=== PATIENT | female | born 1945 | race Caucasian/White ===

== ENCOUNTER 2017-03-13 16:55 | Inpatient (IN) | payer MEDICARE, OTHER, SELFPAY ==
[2017-03-13] VITALS (7 sets, daily range): BP systolic 139–172; BP diastolic 63–77; PULSE 70–79; RESP 14–24; TEMP 36.6–37; O2SAT 95–100; BMI 29.7; BMI 28.9
--- NOTE | 2017-03-13 17:40 | EKG12_ITS ---
Test Reason : CP Blood Pressure : / mmHG Vent. Rate : 081 BPM Atrial Rate : 081 BPM P-R Int : 134 ms QRS Dur : 088 ms QT Int : 376 ms P-R-T Axes : 051 020 039 degrees QTc Int : 436 ms Normal sinus rhythm Normal ECG Confirmed by ROBERTA PEARCE MD ([id number]), general expeditor JESUS PRINGLE ([id number] on 03/14/2017 1:29:30 PM Referred By: Confirmed By:ROBERTA PEARCE MD
--- NOTE | 2017-03-13 17:40 | RAD_ITS ---
STUDY: X-RAY CHEST REASON FOR EXAM: Female, 71 years old. Cough TECHNIQUE: PA and lateral views of the chest. COMPARISON: Chest CT from 09/30/2014 FINDINGS: Granuloma in the right midlung is stable. There is no demonstrated pleural abnormality. Normal size heart. Normal mediastinum and lidia. Normal visualized pulmonary arteries. There is atherosclerotic tortuosity of the aortic arch and descending thoracic aorta. There are diffuse degenerative changes of the visualized thoracic spine. Normal visualized ribs, clavicles, and shoulders. There is no demonstrated abnormality of the visualized soft tissue structures of the upper abdomen. RAD/Chest PA and Lateral IMPRESSION: 1. No airspace consolidation or pleural effusion. Electronically Signed: Kwaku Rea MD at 18:57 EST , Service support ,
[2017-03-13 18:21] LABS: Mucous, Urine 0 SEEN /hpf (<or=2+)
[2017-03-13 18:23] LABS: Color, Urine Yellow (Yellow); Glucose, Dipstick Normal (Normal); Ketone-Dipstick Negative (Negative); Leukocyte Esterase-Dipstick 500 /ul (Negative); Nitrite-Dipstick Positive (Negative); Occult Blood-Urine 150 /ul (Negative); Protein-Dipstick 30 mg/dl (Negative); Urine Bilirubin Dipstick Negative (Negative); Urine Clarity Sl. Cloudy (Clear); Urine Urobilinogen Normal (Normal)
[2017-03-13] MEDS: Acetaminophen 500 MG Tablet 1000 MG PO (18:29)
[2017-03-13 18:31] LABS: Amorphous Sediment 1+ URATE; Bacteria 1+ /hpf (None Seen); Red Blood Cells-Urine 10-25 SEEN /hpf (0-5); Squamous Epithelial Cells - UA 5-10 SEEN /hpf (5-10); White Blood Cells 50-100 SEEN /hpf (0-5)
[2017-03-13] MEDS: 0.9% Normal Saline 1,000 ML 1000 ML IV (18:31)
[2017-03-13 18:48] LABS: Hematocrit 36.3 % (37-47); Hemoglobin 12.4 g/dl (12.0-15.0); Mean Corp Hgb Conc 34.2 g/gl (32-36); Mean Corpuscular Hgb 29.7 pg (27.0-32.0); Mean Corpuscular Volume 86.8 fL (81-99); Mean Platelet Vol. 8.9 fl (6.2-12.0); Platelet Count 351 K/mm3 (150-450); RBC Distribution Width CV 15.2 % (11.6-14.6); RBC Distribution Width SD 48.8 fl (35.1-43.9); Red Blood Count 4.18 M/mm3 (4.2-5.4); White Blood Count 18.3 K/mm3 (4.4-11.0)
[2017-03-13 18:49] LABS: Differential Indicated MANUAL DIFF; POSITIVE COUNT YES; POSITIVE DIFFERENTIAL NO; POSITIVE MORPHOLOGY YES
[2017-03-13 18:57] LABS: ALB/GLOB Ratio 0.5 RATIO (0.9-2.4); AST(SGOT) 19 U/L (15-37); Alanine Aminotransfer ALT/SGPT 78 U/L (12-78); Albumin, Serum 2.9 g/dL (3.4-5.0); Alkaline Phosphatase 412 U/L (45-117); Anion Gap 11 (5-15); BUN 32 mg/dL (7-18); BUN/Creat Ratio 16.2 RATIO (10-20); Chloride 102 mmol/L (98-107); Creatinine, Serum 1.98 mg/dL (0.55-1.02); EST Glomerular Filtration Rate 27 mL/min (>60); Est Glom Filt Rate - Afr Amer 32 mL/min (>60); Estimated Creatinine Clearance 28.24 ml/min; Globulin 5.3 g/dL (2.2-4.2); Glucose 112 mg/dL (70-110); Lipase 102 U/L (73-393); Potassium 3.4 mmol/L (3.5-5.1); Protein, Total 8.2 g/dL (6.4-8.2); Sodium Level 135 mmol/L (136-145)
--- NOTE | 2017-03-13 19:43 | CT_ITS ---
STUDY: CT ABDOMEN AND PELVIS WITHOUT CONTRAST REASON FOR EXAM: Female, 71 years old. Left flank pain RADIATION DOSAGE (If Supplied By Facility): CTDIvol = ( 7.89 ) mGy, DLP = ( 354.78 ) mGycm TECHNIQUE: Transaxial images were obtained from the dome of the diaphragm to the symphysis pubis without oral contrast, and without intravenous contrast. Sagittal and coronal images were reconstructed. Individualized dose optimization techniques were used for this CT. COMPARISON: None. FINDINGS: Calcified granulomas right lung base. The visualized portions of the heart are within normal limits. Normal liver. Normal gallbladder and extrahepatic biliary system. Normal spleen. Normal pancreas. Normal bilateral adrenal glands. Normal right kidney. Normal left kidney. Normal visualized stomach. Normal small intestine. There are multiple colonic diverticula consistent with diverticulosis. The appendix is visualized and appears normal. Normal abdominal aorta. Normal inferior vena cava. Normal retroperitoneum. Normal urinary bladder. Normal abdominal wall. Normal osseous structures. CT/Abdomen/Pelvis without Cont IMPRESSION: Colonic diverticulosis without definite evidence of acute inflammation. No definite urolithiasis or hydronephrosis to explain left flank pain. Electronically Signed: Franky Palmer MD at 21:34 EST , Service support ,
[2017-03-13 20:09] LABS: Basophil 1 % (0-1); Eosinophil 2 % (0-5); Lymphocyte 16 % (19-41); Metamyelocyte 2 % (0-1); Monocyte 5 % (0-10); Neutrophil-Band 4 % (0-5); Neutrophil-Segmented 70 % (47-70); Total Cells Counted 100 (MANUAL DIFF)
[2017-03-13 20:15] LABS: Absolute Lymphocyte Count 2.93 X10^3/ul (0.83-4.51); Absolute Neutrophil Count 13.5 X10^3/uL (2.0-7.7); Differential Comment SCANNED; Lymphocyte # 2.93 X10^3/ul (4.0); Neutrophil # 13.54 X10^3/uL (2.7-7.7); Platelet Estimate ADEQUATE (ADEQ)
[2017-03-13 20:16] LABS: Target Cells 1+
[2017-03-13] MEDS: Ceftriaxone 1 GM/50 ML BAG IV (21:02)
[2017-03-13] MEDS: Ondansetron 4 MG/2 ML Vial IV (21:29)
--- NOTE | 2017-03-13 21:49 | ED.VISSUMM ---
- ER Visit Summary Date of Service: 03/13/17 Chief Complaint: Multiple complaints History of Present Illness: The patient is a 71 F who presents with multiple complaints. She states that recently she has had a poor appetite she has had congestion runny nose as well as lower chest pain. She also complains of epigastric abdominal pain and bilateral flank pain. She has had muscle aches and joint aches. Her symptoms initially began with a URI-like illness muscle and joint aches about a week ago. More recently she has developed bilateral flank pain which is aching as well as epigastric abdominal and lower chest pressure. She has noted cloudy urine but denies dysuria frequency or urgency. No vomiting. No documented fevers at home. Physical Examination: Afebrile vitals are stable Moist mucous membranes Heart regular rate and rhythm Lungs are clear Abdomen soft she is tender to palpation in the epigastrium Back is nontender Test Results: EKG shows normal sinus rhythm at a rate of 81. Laboratory studies notable for white blood cell count of 18.3, creatinine 1.98 potassium 3.4. Alkaline phosphatase elevated at 412, transaminases normal. Lipase normal. UA does show 500 leukocyte esterase positive nitrates and 50-100 WBCs. Chest x-ray shows no acute process. CT the abdomen shows no acute findings to explain the patient's symptoms. Emergency Department Course and Treatment: Patient has leukocytosis bilateral flank pain and obvious UTI. I do believe this represents pyelonephritis. Although she is not febrile or vomiting she does have an acute kidney injury as well. Therefore I do feel admission warranted. She was treated with IV Rocephin. She was discussed with the hospitalist will be admitted. Treatment Plan: [] Disposition: Admit Impression: Pyelonephritis Acute kidney injury This note was generated with [employer] dictation software. It may contain incorrect words, spelling, and punctuation that were not noted in review of the chart prior to signing ED Disposition - Plan for ED Patient: Chief Complaint: Chest Other Referrals: Steve Allan MD [Primary Care Provider] -
--- NOTE | 2017-03-13 22:48 | HP.PCM_ITS ---
Problem List (1) Pyelonephritis Status: Acute (2) PEPE (acute kidney injury) Status: Acute (3) Hyponatremia Status: Acute History of Present Illness Date of Admission: 03/13/17 Chief Complaint: Pyelonephritis The patient is a 71 year old female previously healthy admitted for pyelonephritis. She was in her usual start of health until a few days ago when she developed poor appetite and had generalized malaise. Nothing appeared to make her malaise better or worse. She initially had congestion but later developed epigastric pain and left flank pain. Pain was dull aching but also occasional sharp. Pain would last for hours and worsened over the next few days. She also has increase urinary frequency but no pain with urination. She has diffuse muscle ache as well. Given that her symptoms did not improve, she went to the ED for further workup. Past Medical History Allergies No Known Allergies Allergy (Verified 03/13/17 16:57) Home Medications: Ambulatory Orders Medication Instructions Recorded Estradiol [Vivelle-Dot, Estraderm] 0.1 mg TRANSDERM. 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 Denies: Chills, Fever, Weight Change HEENT: Denies: Head Aches, Sinus Congestion, Sinus Drainage Cardiovascular: Denies: Chest Pain, Palpitations Respiratory: Denies: Cough, Shortness of breath at rest, Sputum production Gastrointestinal: Denies: Abdominal Pain, Nausea, Vomiting Genitourinary: Reports: Frequency, Hesitancy. Denies: Dysuria Musculoskeletal: Denies: Joint Pain, Joint Tenderness Skin: Denies: Rash, Wounds Neurological: Denies: Numbness, Tingling, Focal weakness Psychiatric: Denies: Anxiety, Depression, Homicidal Ideations, Suicidal Ideations Hematologic/ Lymphatic: Denies: Easy Bruising, Easy Bleeding VTE Information - Inpt Only VTE Present on Admission: No VTE Mechan Device Prophylaxis: SCD's VTE Pharm Prophylaxis ordered?: Yes Patient Problems: Active and Suspected Problems Pyelonephritis (Acute) PEPE (acute kidney injury) (Acute) Hyponatremia (Acute) - Physical Exam General: Alert, Oriented x3, Cooperative HEENT: Atraumatic, PERRLA, EOMI, Normocephalic Neck: Supple, No JVD, Negative Carotid Bruits Lungs: Clear to auscultation, Normal air movement Cardiovascular: Regular rate, No murmurs Abdomen: Bowel Sounds Present, Soft, Non Tender Extremities: No edema, Capillary Refill Less than 3 Seconds Skin: No rashes, No breakdown Musculoskeletal: No Tenderness to Palpation of Joints or Extremities Neurological: Cranial nerves II-XII grossly intact Psych/Mental Status: Normal Affect, Appropriate Vital Signs Temp Pulse Resp BP Pulse Ox 98.6 F 76 24 H 172/77 H 100 03/13/17 16:58 03/13/17 21:34 03/13/17 21:34 03/13/17 21:34 03/13/17 21:34 Oxygen Delivery Method Room Air Weight: 66.7 kg Body Mass Index (BMI) 29.7 Microbiology Past 72 Hours 03/13/17 18:12 Influenza Types A,B Direct FA (COREY) - Final Mucosa - Nose Laboratory Tests Past 24 Hrs 03/13/17 03/13/17 03/13/17 18:15 18:28 18:28 WBC 18.3 H RBC 4.18 L Hgb 12.4 Hct 36.3 L MCV 86.8 MCH 29.7 MCHC 34.2 RDW 15.2 H RDW Differential 48.8 H Plt Count 351 MPV 8.9 Neut % (Auto) Not Reportable Absolute Neuts (auto) 13.5 H Absolute Lymphs (auto) 2.93 Total Counted 100 Neutrophils % (Manual) 70 Band Neutrophils % 4 Lymphocytes % (Manual) 16 L Monocytes % (Manual) 5 Eosinophils % (Manual) 2 Basophils % (Manual) 1 Metamyelocytes % 2 H Differential Comment SCANNED Diff Path Review May foll Platelet Estimate ADEQUATE Target Cells 1+ Sodium 135 L Potassium 3.4 L Chloride 102 Carbon Dioxide 22.0 Anion Gap 11 BUN 32 H Creatinine 1.98 H Estim Creat Clear Calc 28.24 Est GFR (MDRD) Af Amer 32 L Est GFR (MDRD) Non-Af 27 L BUN/Creatinine Ratio 16.2 Glucose 112 H Calcium 9.0 Total Bilirubin 0.40 AST 19 ALT 78 Alkaline Phosphatase 412 H Troponin I < 0.02 Total Protein 8.2 Albumin 2.9 L Globulin 5.3 H Albumin/Globulin Ratio 0.5 L Lipase 102 Urine Color Yellow Urine Clarity Sl. Cloudy Urine pH 6.0 Ur Specific [place] 1.010 Urine Protein 30 H Urine Glucose (UA) Normal Urine Ketones Negative Urine Occult Blood 150 H Urine Nitrite Positive H Urine Bilirubin Negative Urine Urobilinogen Normal Ur Leukocyte Esterase 500 H Urine RBC 10-25 SEEN Urine WBC 50-100 SEEN Ur Squamous Epith Cells 5-10 SEEN Amorphous Sediment 1+ URATE Urine Bacteria 1+ Urine Mucus 0 SEEN Assessment/Plan Active and Suspected Problems Pyelonephritis (Acute) PEPE (acute kidney injury) (Acute) Hyponatremia (Acute) 71 year old female previously healthy admitted for pyelonephritis. 1) Pyelonephritis: Will start ceftriaxone. Will get cultures. Monitor. 2) PEPE: Probably secondary to infection and azotemia. Hydration. Monitor. 3) Hyponatremia: Probably secondary to hypovolemia hyponatremia. Will start IVF. Monitor. 4) Prophylaxis: SCD / heparin.
--- NOTE | 2017-03-13 22:50 | ED.RN ---
MED SURG PYELONEPHRITIS GERSON
[2017-03-14] VITALS (10 sets, daily range): BP systolic 151–161; BP diastolic 67–77; PULSE 63–79; RESP 16–18; TEMP 36.5–37.1; O2SAT 98–100
[2017-03-14] MEDS: 0.9% NaCl Peripheral Flush Adult/Peds IV ×4 (03:38→11:42)
[2017-03-14] MEDS: Heparin Injection 5,000 UNITS/ML Syringe 5000 UNITS SC ×3 (06:30→21:03)
[2017-03-14 06:41] LABS: Hematocrit 33.5 % (37-47); Mean Corp Hgb Conc 32.8 g/gl (32-36); Mean Corpuscular Hgb 28.9 pg (27.0-32.0); Mean Corpuscular Volume 87.9 fL (81-99); Mean Platelet Vol. 8.9 fl (6.2-12.0); Platelet Count 304 K/mm3 (150-450); RBC Distribution Width CV 15.4 % (11.6-14.6); RBC Distribution Width SD 49.6 fl (35.1-43.9); Red Blood Count 3.81 M/mm3 (4.2-5.4); White Blood Count 15.9 K/mm3 (4.4-11.0)
[2017-03-14 06:43] LABS: Anion Gap 11 (5-15); BUN 27 mg/dL (7-18); BUN/Creat Ratio 16.9 RATIO (10-20); Calcium,Total 7.7 mg/dL (8.5-10.1); Chloride 107 mmol/L (98-107); EST Glomerular Filtration Rate 34 mL/min (>60); Est Glom Filt Rate - Afr Amer 41 mL/min (>60); Estimated Creatinine Clearance 23.84 ml/min; Glucose 144 mg/dL (70-110); Potassium 3.5 mmol/L (3.5-5.1); Sodium Level 136 mmol/L (136-145)
[2017-03-14 06:51] LABS: Differential Indicated MANUAL DIFF; POSITIVE COUNT YES; POSITIVE DIFFERENTIAL NO; POSITIVE MORPHOLOGY YES
[2017-03-14 07:55] LABS: Eosinophil 1 % (0-5); Lymphocyte 10 % (19-41); Metamyelocyte 1 % (0-1); Monocyte 6 % (0-10); Myelocyte 1 (0-0); Neutrophil-Segmented 81 % (47-70); Platelet Estimate ADEQUATE (ADEQ); Red Cell Morphology NORM C+C NORMAL (NORM C&C); Total Cells Counted 100 (MANUAL DIFF)
[2017-03-14 07:56] LABS: Absolute Lymphocyte Count 1.59 X10^3/ul (0.83-4.51); Absolute Neutrophil Count 12.9 X10^3/uL (2.0-7.7)
[2017-03-14] MEDS: Ceftriaxone 1 GM/50 ML BAG IV (09:35)
[2017-03-14] MEDS: 0.9% Normal Saline 1,000 ML 100 ML IV ×3 (11:34→20:08)
[2017-03-14 12:50] LABS: Pathologist Review Reviewed
[2017-03-14 12:52] LABS: Pathologist Review Reviewed
--- NOTE | 2017-03-14 13:48 | CASEMGMT ---
RN KATHY Face to Face with patient for initial transition planning/care coordination assessment. RN CM introduced self and role at [facility]. Patient sitting up in bed, alert and oriented, with spouse at bedside. Patient willing to participate in assessment and is able to answer all questions appropriately. Care providers, pharmacy, and demographics verified. See link attached. Patient wishes to discharge home, denies need for home health at this time. Patient states she has no further needs or concerns at this time. CM to follow for discharge planning needs that may arise. Disposition Plan: Patient to discharge home with family support and follow-up plans in place.
--- NOTE | 2017-03-14 16:51 | PCM.PROGNOTE ---
Patient Problems: Active and Suspected Problems Pyelonephritis (Acute) PEPE (acute kidney injury) (Acute) Hyponatremia (Acute) Subjective: Patient is a 71-year-old female on no outpatient medications other than estradiol patch who presented to the emergency room at [facility] on 03/13/2017 complaining of poor appetite with generalized malaise, bilateral flank pain, epigastric pain and lower chest pressure. She stated her urine was cloudy but denied any urinary frequency, urgency or dysuria. She had no vomiting. Vital signs at presentation to the emergency room were temp 98.6, pulse rate 78, blood pressure 150/72, respiratory rate 18 and she was 97-100% saturated on room air. White blood cell count was elevated at 18.3 with 70% neutrophils and 4% bands. He had 2 metamyelocytes. Sodium was low at 135 and the potassium was low at 3.4. BUN was 32 and the creatinine was 1.98. The last creatinine we have on her is from 2014 and at that time it was 0.8. Alkaline phosphatase was elevated at 412 but the other LFTs were within normal limits. Lipase was 102. UA, collected by clean catch, showed 50-100 WBCs with 1+ bacteria and positive nitrites. There was +1 urate crystals. Chest x-ray showed a stable granuloma in the right midlung and no infiltrates. CT scan of the abdomen and pelvis showed colonic diverticulosis without definite evidence of acute inflammation. There was no hydronephrosis and no urolithiasis in the left side. The gallbladder appeared normal and so did the pancreas. Blood and urine cultures were sent. An influenza swab was negative. She was admitted to the hospital with a presumptive diagnosis of pyelonephritis and with PEPE. she denies nausea, vomiting, cough. Her biggest complaint is pain in the lower substernal area and the epigastric area. She takes 1000 mg of ibuprofen daily for many years. She denies any history of peptic ulcer disease. She does admit to having chest pain associated with a sour taste in her mouth. She quit smoking 1 week ago and she drinks caffeinated beverages. She has been afebrile since admission. She has persistent systolic hypertension. She has taken 1620 cc orally since admission. Repeat lab today shows a white blood cell count of 15.9 with 81% neutrophils and no bands recorded. There is 1 metamyelocyte and 1 myelocyte. Sodium and potassium are now normal but the serum bicarb is decreased at 18. Creatinine is down to 1.6 from 1.98 at admission. Fasting glucose today was 144. - Physical Exam General: Alert, Oriented x3, Cooperative HEENT: Atraumatic, PERRLA, EOMI, Normocephalic, - - she is very hoarse. Oral: Moist Mucosa, - - No exudate and no injection in the posterior pharynx. Neck: Supple, No JVD, No Nodes, Trachea Midline Lungs: Clear to auscultation, No rhonchi, No wheeze, No rales Cardiovascular: Regular rate, Regular Rhythm, Normal S1, Normal S2, No murmurs, No Gallop Abdomen: Bowel Sounds Present, Soft, Non-Distended, Tender - in the epigastric area with no guarding for palpation Extremities: No clubbing, No cyanosis, No edema Skin: No rashes Musculoskeletal: Arthritic Changes Neurological: Cranial nerves II-XII grossly intact, Neuro grossly intact Psych/Mental Status: Normal Affect, Appropriate Vital Signs Temp Pulse Resp BP Pulse Ox 98.2 F 70 18 151/77 H 98 03/14/17 16:01 03/14/17 16:01 03/14/17 16:01 03/14/17 16:01 03/14/17 16:01 Oxygen Delivery Method Room Air Weight: 148 lb 2.41 oz Body Mass Index (BMI) 28.9 Intake and Output for Last 24 Hours 03/12/17 03/13/17 03/14/17 23:59 23:59 23:59 Intake Total 3253 / 3253 Output Total 800 / 800 Balance 2453 / 2453 Laboratory Tests Past 24 Hrs 03/14/17 03/14/17 06:00 06:00 WBC 15.9 H RBC 3.81 L Hgb 11.0 L Hct 33.5 L MCV 87.9 MCH 28.9 MCHC 32.8 RDW 15.4 H RDW Differential 49.6 H Plt Count 304 MPV 8.9 Neut % (Auto) Not Reportable Absolute Neuts (auto) 12.9 H Absolute Lymphs (auto) 1.59 Total Counted 100 Neutrophils % (Manual) 81 H Lymphocytes % (Manual) 10 L Monocytes % (Manual) 6 Eosinophils % (Manual) 1 Metamyelocytes % 1 Myelocytes % 1 H Diff Path Review Reviewed Platelet Estimate ADEQUATE RBC Morphology NORM C+C Sodium 136 Potassium 3.5 Chloride 107 Carbon Dioxide 18.0 L Anion Gap 11 BUN 27 H Creatinine 1.60 H Estim Creat Clear Calc 23.84 Est GFR (MDRD) Af Amer 41 L Est GFR (MDRD) Non-Af 34 L BUN/Creatinine Ratio 16.9 Glucose 144 H Calcium 7.7 L Assessment/Plan Active and Suspected Problems Pyelonephritis (Acute) PEPE (acute kidney injury) (Acute) Hyponatremia (Acute) Impressions 1. myalgias and arthralgias - doubt pyelonephritis, possible viral S? 2. GERD and possible PUD due to LT NSAID use 3. elevated CREAT with no hx of kidney disease - etiology? Acute? chronic? 4. arthritis with chronic NSAID - 1,000 mg of Motrin daily 5. hoarse voice Straight cath for UA and repeat urine culture now Encourage the patient to take oral pain medication for her substernal discomfort rather than IV morphine Start Protonix 40 mg twice daily GI cocktail every 8 hours as needed substernal discomfort Repeat lab in the a.m. Add a caffeine restriction to her current diet If the repeat UA shows no significant pyuria and she remains afebrile will likely discharge tomorrow Code Visit Inpatient E&M: 18742 Subs Hosp L2
[2017-03-14] MEDS: Pantoprazole Sodium 40 MG Tablet PO (20:05)
[2017-03-14 20:57] LABS: Bacteria 0 SEEN /hpf (None Seen); Color, Urine Yellow (Yellow); Glucose, Dipstick Normal (Normal); Ketone-Dipstick Negative (Negative); Leukocyte Esterase-Dipstick 500 /ul (Negative); Mucous, Urine 0 SEEN /hpf (<or=2+); Nitrite-Dipstick Negative (Negative); Occult Blood-Urine 150 /ul (Negative); Protein-Dipstick 30 mg/dl (Negative); Red Blood Cells-Urine 0 SEEN /hpf (0-5); Squamous Epithelial Cells - UA 0 SEEN /hpf (5-10); Urine Bilirubin Dipstick Negative (Negative); Urine Clarity Clear (Clear); Urine Urobilinogen Normal (Normal)
[2017-03-14 20:59] LABS: White Blood Cells 0-5 SEEN /hpf (0-5)
[2017-03-15] VITALS (9 sets, daily range): BP systolic 145–168; BP diastolic 70–80; PULSE 63–78; RESP 16–18; TEMP 36.4–37.4; O2SAT 97–100
[2017-03-15] MEDS: Heparin Injection 5,000 UNITS/ML Syringe 5000 UNITS SC ×3 (05:00→21:57)
[2017-03-15] MEDS: 0.9% Normal Saline 1,000 ML 100 ML IV ×2 (05:31→14:56)
[2017-03-15 06:46] LABS: ALB/GLOB Ratio 0.5 RATIO (0.9-2.4); AST(SGOT) 9 U/L (15-37); Alanine Aminotransfer ALT/SGPT 40 U/L (12-78); Albumin, Serum 2.1 g/dL (3.4-5.0); Alkaline Phosphatase 252 U/L (45-117); Anion Gap 8 (5-15); BUN 19 mg/dL (7-18); BUN/Creat Ratio 12.4 RATIO (10-20); Calcium,Total 7.6 mg/dL (8.5-10.1); Chloride 111 mmol/L (98-107); Creatinine, Serum 1.53 mg/dL (0.55-1.02); EST Glomerular Filtration Rate 36 mL/min (>60); Est Glom Filt Rate - Afr Amer 43 mL/min (>60); Estimated Creatinine Clearance 24.93 ml/min; Globulin 4.1 g/dL (2.2-4.2); Glucose 152 mg/dL (70-110); Magnesium 2.3 mg/dL (1.6-2.6); Phosphorus 2.3 mg/dL (2.5-4.9); Potassium 3.6 mmol/L (3.5-5.1); Protein, Total 6.2 g/dL (6.4-8.2); Sodium Level 140 mmol/L (136-145)
[2017-03-15 06:48] LABS: Hematocrit 33.3 % (37-47); Hemoglobin 10.7 g/dl (12.0-15.0); Mean Corp Hgb Conc 32.1 g/gl (32-36); Mean Corpuscular Hgb 28.9 pg (27.0-32.0); Mean Platelet Vol. 8.8 fl (6.2-12.0); Platelet Count 252 K/mm3 (150-450); RBC Distribution Width CV 15.7 % (11.6-14.6); RBC Distribution Width SD 51.7 fl (35.1-43.9); White Blood Count 14.5 K/mm3 (4.4-11.0)
[2017-03-15 06:51] LABS: Differential Indicated MANUAL DIFF; POSITIVE COUNT YES; POSITIVE DIFFERENTIAL NO; POSITIVE MORPHOLOGY YES
[2017-03-15 07:35] LABS: Lymphocyte 8 % (19-41); Monocyte 7 % (0-10); Neutrophil-Segmented 85 % (47-70)
[2017-03-15 07:36] LABS: Platelet Estimate ADEQUATE (ADEQ); Red Cell Morphology NORM C+C NORMAL (NORM C&C)
[2017-03-15 07:37] LABS: Absolute Lymphocyte Count 1.16 X10^3/ul (0.83-4.51); Absolute Neutrophil Count 12.3 X10^3/uL (2.0-7.7)
[2017-03-15] MEDS: Pantoprazole Sodium 40 MG Tablet PO ×2 (10:06→21:57)
[2017-03-15] MEDS: Ceftriaxone 1 GM/50 ML BAG IV (10:07)
[2017-03-15 11:43] LABS: Pathologist Review Reviewed
[2017-03-15 13:28] LABS: Erythrocyte Sedimentation Rate 78 mm/hr (0-30)
--- NOTE | 2017-03-15 15:09 | PCM.PROGNOTE ---
Patient Problems: Active and Suspected Problems Pyelonephritis (Acute) PEPE (acute kidney injury) (Acute) Hyponatremia (Acute) Subjective: All events the past 24 hours have been reviewed. She is afebrile with stable vital signs. Systolic blood pressure is mildly increased Intake and output are not accurate She has not had to take narcotics since the GI cocktails and Protonix were initiated. She has no substernal chest discomfort today but continues to have pain to the right of the mid epigastric area. The pain seems to increase with eating but is relieved with a GI cocktail. She has never had endoscopy. White blood cell count remains elevated at 14.5 but the patient has no fevers. Straight cath UA showed 0-5 WBCs and was nitrite negative. She does have proteinuria. Creatinine today is still elevated at 1.3 with a GFR of 36. This is consistent with stage III renal failure....... etiology is unclear at this time. An ESR today is elevated at 78 and the CRP is elevated at 99.2. Alkaline phosphatase was elevated at 412 at admission but today is 252. The gallbladder appeared normal on the CT scan. - Physical Exam General: Alert, Oriented x3, Cooperative, No apparent distress, Well developed, Well nourished HEENT: Atraumatic Oral: Moist Mucosa Neck: Supple, No JVD, Trachea Midline Lungs: Clear to auscultation Cardiovascular: Regular rate, Regular Rhythm, Normal S1, Normal S2, No murmurs, No rub noted, No Gallop Abdomen: Bowel Sounds Present, Soft, Non-Distended, Tender - Just to the right of midline in the epigastric area Extremities: No clubbing, No cyanosis, No edema Neurological: Cranial nerves II-XII grossly intact, Neuro grossly intact Vital Signs Temp Pulse Resp BP Pulse Ox 97.7 F L 63 18 145/70 H 97 03/15/17 10:08 03/15/17 11:55 03/15/17 10:08 03/15/17 10:08 03/15/17 10:08 Oxygen Delivery Method Room Air Weight: 148 lb 2.41 oz Body Mass Index (BMI) 28.9 Intake and Output for Last 24 Hours 03/13/17 03/14/17 03/15/17 23:59 23:59 23:59 Intake Total 4852 / 4852 4527 / 4527 Output Total 1500 / 1500 Balance 3352 / 3352 4527 / 4595 Laboratory Tests Past 24 Hrs 03/14/17 03/15/17 03/15/17 18:40 06:00 06:00 WBC 14.5 H RBC 3.70 L Hgb 10.7 L Hct 33.3 L MCV 90.0 MCH 28.9 MCHC 32.1 RDW 15.7 H RDW Differential 51.7 H Plt Count 252 MPV 8.8 Immature Gran % (Auto) [employer]PERATOR Neut % (Auto) [employer]AL [employer] OPERATOR Lymph % (Auto) [employer]POSAL [employer] OPERATOR [place] % (Auto) [employer]AL [employer] OPERATOR Eos % (Auto) [employer]AL [employer] OPERATOR Baso % (Auto) [employer] OPERATOR Absolute Neuts (auto) 12.3 H Absolute Lymphs (auto) 1.16 Total Counted Not Reportable Neutrophils % (Manual) 85 H Lymphocytes % (Manual) 8 L Monocytes % (Manual) 7 Diff Path Review Reviewed Platelet Estimate ADEQUATE RBC Morphology NORM C+C ESR Sodium 140 Potassium 3.6 Chloride 111 H Carbon Dioxide 21.0 Anion Gap 8 BUN 19 H Creatinine 1.53 H Estim Creat Clear Calc 24.93 Est GFR (MDRD) Af Amer 43 L Est GFR (MDRD) Non-Af 36 L BUN/Creatinine Ratio 12.4 Glucose 152 H Calcium 7.6 L Phosphorus 2.3 L Magnesium 2.3 Total Bilirubin 0.30 AST 9 L ALT 40 Alkaline Phosphatase 252 H C-React Prot Ext Range Total Protein 6.2 L Albumin 2.1 L Globulin 4.1 Albumin/Globulin Ratio 0.5 L Urine Color Yellow Urine Clarity Clear Urine pH 6.0 Ur Specific [place] 1.010 Urine Protein 30 H Urine Glucose (UA) Normal Urine Ketones Negative Urine Occult Blood 150 H Urine Nitrite Negative Urine Bilirubin Negative Urine Urobilinogen Normal Ur Leukocyte Esterase 500 H Urine RBC 0 SEEN Urine WBC 0-5 SEEN Ur Squamous Epith Cells 0 SEEN Urine Bacteria 0 SEEN Urine Mucus 0 SEEN 03/15/17 03/15/17 06:00 06:00 WBC RBC Hgb Hct MCV MCH MCHC RDW RDW Differential Plt Count MPV Immature Gran % (Auto) Neut % (Auto) Lymph % (Auto) [place] % (Auto) Eos % (Auto) Baso % (Auto) Absolute Neuts (auto) Absolute Lymphs (auto) Total Counted Neutrophils % (Manual) Lymphocytes % (Manual) Monocytes % (Manual) Diff Path Review Platelet Estimate RBC Morphology ESR 78 H Sodium Potassium Chloride Carbon Dioxide Anion Gap BUN Creatinine Estim Creat Clear Calc Est GFR (MDRD) Af Amer Est GFR (MDRD) Non-Af BUN/Creatinine Ratio Glucose Calcium Phosphorus Magnesium Total Bilirubin AST ALT Alkaline Phosphatase C-React Prot Ext Range 99.20 H Total Protein Albumin Globulin Albumin/Globulin Ratio Urine Color Urine Clarity Urine pH Ur Specific [place] Urine Protein Urine Glucose (UA) Urine Ketones Urine Occult Blood Urine Nitrite Urine Bilirubin Urine Urobilinogen Ur Leukocyte Esterase Urine RBC Urine WBC Ur Squamous Epith Cells Urine Bacteria Urine Mucus Assessment/Plan Active and Suspected Problems Pyelonephritis (Acute) PEPE (acute kidney injury) (Acute) Hyponatremia (Acute) Impressions 1. myalgias and arthralgias - doubt pyelonephritis, possible viral S? Straight cath UA had only 0-5 WBCs and was nitrite negative. 2. GERD and possible PUD due to LT NSAID use 3. elevated CREAT with no hx of kidney disease - etiology? Acute? chronic? With the elevated ESR and CRP and the proteinuria and arthritis will need to R/O CT disease 4. arthritis with chronic NSAID - 1,000 mg of Motrin daily 5. hoarse voice 6. elevated AP - significance? AP increased at admission and although the GB looks normal on the CT will get an US since the pain increases with eating Consult Dr. Nallely Valenzuela for renal failure Urine protein and urine creatinine CHARLEE and RA Ultrasound of the gallbladder If she continues to have pain in the epigastric and right upper quadrant tomorrow will need to consider endoscopy Code Visit Inpatient E&M: 25681 Subs Hosp L2
--- NOTE | 2017-03-15 15:19 | PN_ITS ---
Patient Problems: Active and Suspected Problems Pyelonephritis (Acute) PEPE (acute kidney injury) (Acute) Hyponatremia (Acute) Subjective: All events the past 24 hours have been reviewed. She is afebrile with stable vital signs. Systolic blood pressure is mildly increased Intake and output are not accurate She has not had to take narcotics since the GI cocktails and Protonix were initiated. She has no substernal chest discomfort today but continues to have pain to the right of the mid epigastric area. The pain seems to increase with eating but is relieved with a GI cocktail. She has never had endoscopy. White blood cell count remains elevated at 14.5 but the patient has no fevers. Straight cath UA showed 0-5 WBCs and was nitrite negative. She does have proteinuria. Creatinine today is still elevated at 1.3 with a GFR of 36. This is consistent with stage III renal failure....... etiology is unclear at this time. An ESR today is elevated at 78 and the CRP is elevated at 99.2. Alkaline phosphatase was elevated at 412 at admission but today is 252. The gallbladder appeared normal on the CT scan. - Physical Exam General: Alert, Oriented x3, Cooperative, No apparent distress, Well developed, Well nourished HEENT: Atraumatic Oral: Moist Mucosa Neck: Supple, No JVD, Trachea Midline Lungs: Clear to auscultation Cardiovascular: Regular rate, Regular Rhythm, Normal S1, Normal S2, No murmurs, No rub noted, No Gallop Abdomen: Bowel Sounds Present, Soft, Non-Distended, Tender - Just to the right of midline in the epigastric area Extremities: No clubbing, No cyanosis, No edema Neurological: Cranial nerves II-XII grossly intact, Neuro grossly intact Vital Signs Temp Pulse Resp BP Pulse Ox 97.7 F L 63 18 145/70 H 97 03/15/17 10:08 03/15/17 11:55 03/15/17 10:08 03/15/17 10:08 03/15/17 10:08 Oxygen Delivery Method Room Air Weight: 148 lb 2.41 oz Body Mass Index (BMI) 28.9 Intake and Output for Last 24 Hours 03/13/17 03/14/17 03/15/17 23:59 23:59 23:59 Intake Total 4852 / 4852 4527 / 4527 Output Total 1500 / 1500 Balance 3352 / 3352 4527 / 4518 Laboratory Tests Past 24 Hrs 03/14/17 03/15/17 03/15/17 18:40 06:00 06:00 WBC 14.5 H RBC 3.70 L Hgb 10.7 L Hct 33.3 L MCV 90.0 MCH 28.9 MCHC 32.1 RDW 15.7 H RDW Differential 51.7 H Plt Count 252 MPV 8.8 Immature Gran % (Auto) FOLDER MACHINE Neut % (Auto) FOLDER MACHINE Lymph % (Auto) FOLDER MACHINE [place] % (Auto) FOLDER MACHINE Eos % (Auto) FOLDER MACHINE Baso % (Auto) FOLDER MACHINE Absolute Neuts (auto) 12.3 H Absolute Lymphs (auto) 1.16 Total Counted Not Reportable Neutrophils % (Manual) 85 H Lymphocytes % (Manual) 8 L Monocytes % (Manual) 7 Diff Path Review Reviewed Platelet Estimate ADEQUATE RBC Morphology NORM C+C ESR Sodium 140 Potassium 3.6 Chloride 111 H Carbon Dioxide 21.0 Anion Gap 8 BUN 19 H Creatinine 1.53 H Estim Creat Clear Calc 24.93 Est GFR (MDRD) Af Amer 43 L Est GFR (MDRD) Non-Af 36 L BUN/Creatinine Ratio 12.4 Glucose 152 H Calcium 7.6 L Phosphorus 2.3 L Magnesium 2.3 Total Bilirubin 0.30 AST 9 L ALT 40 Alkaline Phosphatase 252 H C-React Prot Ext Range Total Protein 6.2 L Albumin 2.1 L Globulin 4.1 Albumin/Globulin Ratio 0.5 L Urine Color Yellow Urine Clarity Clear Urine pH 6.0 Ur Specific [place] 1.010 Urine Protein 30 H Urine Glucose (UA) Normal Urine Ketones Negative Urine Occult Blood 150 H Urine Nitrite Negative Urine Bilirubin Negative Urine Urobilinogen Normal Ur Leukocyte Esterase 500 H Urine RBC 0 SEEN Urine WBC 0-5 SEEN Ur Squamous Epith Cells 0 SEEN Urine Bacteria 0 SEEN Urine Mucus 0 SEEN 03/15/17 03/15/17 06:00 06:00 WBC RBC Hgb Hct MCV MCH MCHC RDW RDW Differential Plt Count MPV Immature Gran % (Auto) Neut % (Auto) Lymph % (Auto) [place] % (Auto) Eos % (Auto) Baso % (Auto) Absolute Neuts (auto) Absolute Lymphs (auto) Total Counted Neutrophils % (Manual) Lymphocytes % (Manual) Monocytes % (Manual) Diff Path Review Platelet Estimate RBC Morphology ESR 78 H Sodium Potassium Chloride Carbon Dioxide Anion Gap BUN Creatinine Estim Creat Clear Calc Est GFR (MDRD) Af Amer Est GFR (MDRD) Non-Af BUN/Creatinine Ratio Glucose Calcium Phosphorus Magnesium Total Bilirubin AST ALT Alkaline Phosphatase C-React Prot Ext Range 99.20 H Total Protein Albumin Globulin Albumin/Globulin Ratio Urine Color Urine Clarity Urine pH Ur Specific [place] Urine Protein Urine Glucose (UA) Urine Ketones Urine Occult Blood Urine Nitrite Urine Bilirubin Urine Urobilinogen Ur Leukocyte Esterase Urine RBC Urine WBC Ur Squamous Epith Cells Urine Bacteria Urine Mucus Assessment/Plan Active and Suspected Problems Pyelonephritis (Acute) PEPE (acute kidney injury) (Acute) Hyponatremia (Acute) Impressions 1. myalgias and arthralgias - doubt pyelonephritis, possible viral S? Straight cath UA had only 0-5 WBCs and was nitrite negative. 2. GERD and possible PUD due to LT NSAID use 3. elevated CREAT with no hx of kidney disease - etiology? Acute? chronic? With the elevated ESR and CRP and the proteinuria and arthritis will need to R/ O CT disease 4. arthritis with chronic NSAID - 1,000 mg of Motrin daily 5. hoarse voice 6. elevated AP - significance? AP increased at admission and although the GB looks normal on the CT will get an US since the pain increases with eating Consult Dr. Nallely Valenzuela for renal failure Urine protein and urine creatinine CHARLEE and RA Ultrasound of the gallbladder If she continues to have pain in the epigastric and right upper quadrant tomorrow will need to consider endoscopy Code Visit Inpatient E&M: [id number] Subs Hosp L2
[2017-03-15] MEDS: amLODIPine 5 MG Tablet PO (15:42)
[2017-03-15 15:55] LABS: Rheumatoid Factor < 10.0 IU/mL (<15)
[2017-03-15 16:17] LABS: Urine Sodium 42 mmol/L (Not Establ.)
[2017-03-16] VITALS: PULSE 72
[2017-03-16 03:10] VITALS: BP 127/69; PULSE 60; RESP 18; TEMP 37.4; O2SAT 96
[2017-03-16 05:00] VITALS: PULSE 78
[2017-03-16] MEDS: Heparin Injection 5,000 UNITS/ML Syringe 5000 UNITS SC ×2 (06:24→14:31)
[2017-03-16 06:33] LABS: Albumin, Serum 2.3 g/dL (3.4-5.0); BUN 14 mg/dL (7-18); BUN/Creat Ratio 10.4 RATIO (10-20); Calcium,Total 8.1 mg/dL (8.5-10.1); Chloride 111 mmol/L (98-107); Creatinine, Serum 1.34 mg/dL (0.55-1.02); EST Glomerular Filtration Rate 42 mL/min (>60); Est Glom Filt Rate - Afr Amer 50 mL/min (>60); Estimated Creatinine Clearance 28.46 ml/min; Glucose 107 mg/dL (70-110); Phosphorus 2.5 mg/dL (2.5-4.9); Potassium 3.7 mmol/L (3.5-5.1); Sodium Level 144 mmol/L (136-145)
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
[2017-03-16 11:09] VITALS: BP 164/77; PULSE 81; RESP 18; TEMP 36.7; O2SAT 98
[2017-03-16] MEDS: Ceftriaxone 1 GM/50 ML BAG IV (11:13)
[2017-03-16] MEDS: amLODIPine 5 MG Tablet PO (11:14)
[2017-03-16] MEDS: Pantoprazole Sodium 40 MG Tablet PO (11:14)
[2017-03-16 11:57] VITALS: PULSE 77
[2017-03-16 14:07] LABS: ANTINUCLEAR ANTIBODIES DIRECT Positive (Negative); Anti-Centromere B Ab <0.2 AI (0.0-0.9); Anti-Chromatin <0.2 AI (0.0-0.9); Anti-Jo <0.2 AI (0.0-0.9); Anti-Scleroderma-70 AB <0.2 AI (0.0-0.9); RNP Ab <0.2 AI (0.0-0.9); SJOGREN'S Anti-SS-A test < 0.2 AI (0.0-0.9); SJOGREN'S Anti-SS-B test 1.9 AI (0.0-0.9); Smith Ab <0.2 AI (0.0-0.9)
[2017-03-16 14:51] VITALS: PULSE 69
--- NOTE | 2017-03-16 15:12 | US_ITS ---
STUDY: ABDOMINAL ULTRASOUND - RIGHT UPPER QUADRANT REASON FOR VISIT: Female, 71 years old. Abnormal liver function tests. Postprandial pain. TECHNIQUE: Ultrasound evaluation of the right upper quadrant was performed with real-time and static thapa-scale imaging. TECHNICAL QUALITY: Adequate. COMPARISON: None. FINDINGS: Liver: The liver measures 16.6 cm. There is normal echogenicity of the liver. The bile ducts are within normal limits. There is hepatic color flow. The direction of portal flow is hepatopetal. There is no demonstrated mass lesion. Gallbladder: Normal distended gallbladder. The gallbladder wall measures 1.6 mm. There is a negative sonographic Man's sign. There is no pericholecystic fluid. There are no gallstones. Common Bile Duct (C.B.D.): The common bile duct measures 4.4 mm. Pancreas: Normal size of the head, body and tail of the pancreas. There is normal echogenicity of the pancreas. There is no demonstrated pancreatic mass or cyst. Right Kidney: Normal size of the right kidney. The right kidney measures 11.8 cm x 5 cm x 4.4 cm. Normal renal cortex. The right cortex measures 1.3 cm. There is no demonstrated renal mass or cyst. There is no right hydronephrosis. US/Gallbladder IMPRESSION: Normal right upper quadrant ultrasound examination. Electronically Signed: Neville Schaffer MD at 10:03 EST Tel [phone], Service support ,
--- NOTE | 2017-03-16 17:32 | DCINST_ITS ---
- Discharge Diagnoses Current Active Problems: Current Active and Chronic Problems Pyelonephritis (Acute) PEPE (acute kidney injury) (Acute) Hyponatremia (Acute) You will use the following diet at home:: No restrictions Your food should be the consistency of: Regular Your liquids should be the consistency of: Regular/Thin Discharge Activity: Return to Normal Activity Call your doctor if you observe: Fever of 101 or Higher, Inability to urinate, Shortness of breath, - - diarrhea, shaking chills, burning with urination, rash , painful sores in the mouth, vaginal itching Additional Instructions: I do not think you had a urinary tract infection. After only 1 dose of an antibiotic 12 hours later there were only 0-5 white cells in the urine and the culture had no growth. The blood cultures had no growth and you were better within 24 hours. You had 3 doses of IV antibiotics in the hospital and I have given you a prescription for an antibiotic to take for 4 additional days because the White blood cell count has improved since the antibiotics......that may mean nothing. I think you have reflux and I also think you may have an ulcer. The pain in the lower sternal area and in the abdomen has completely resolved with the acid chito and I am going to keep you on this......it is called Pantoprazole. The gall bladder was normal on the ultrasound. Your BP is high and you are going to take Amlodipine. Get your BP checked in Dr. Allan's office in 10 days. Try and discontinue Motrin until you see Dr. Valenzuela in follow up and she rechecks the kidney function. You can take up to 3 GM of Tylenol daily for pain relief. Allergies/Adverse Reactions: Allergies No Known Allergies Allergy (Verified 03/13/17 16:57) Medications to take at Discharge Estradiol [Vivelle-Dot, Estraderm] 0.1 mg TRANSDERM. QWEEK 03/13/17 Amlodipine [Norvasc] 5 mg PO DAILY #30 tab 03/16/17 Pantoprazole Sodium [Protonix] 40 mg PO BID #46 tab 03/16/17 The following prescriptions were given: Amlodipine [Norvasc] 5 mg PO DAILY #30 tab Pantoprazole Sodium [Protonix] 40 mg PO BID #46 tab Primary Care Physician: Steve Allan MD [Primary Care Provider] - Please follow up with your Primary Care Physician in: 10 days Please Follow Up With: Nallely Valenzuela DO When: 2 weeks Proposed Discharge Date: 03/16/17
--- NOTE | 2017-03-16 17:34 | PCM.DC.SUM ---
Discharge Date and Diagnosis Date of Admission: 03/13/17 Date of Discharge: 03/16/17 - Primary Discharge Diagnosis Active and Suspected Problems Pyelonephritis (Acute) PEPE (acute kidney injury) (Acute) Hyponatremia (Acute) dehydration - Secondary Discharge Diagnosis suspected HTN chronic NSAID use Hospital Course and Treatment Imaging Results: 03/16/17 15:12 Gallbladder [US] Urgent Clinical Impression(s) from Imaging Studies Chest X-Ray 03/13/17 17:40 IMPRESSION: 1. No airspace consolidation or pleural effusion. Electronically Signed: Kwaku Rea MD at 18:57 EST , Service support , Abdomen/Pelvis CT 03/13/17 19:43 IMPRESSION: Colonic diverticulosis without definite evidence of acute inflammation. No definite urolithiasis or hydronephrosis to explain left flank pain. Electronically Signed: Franky Palmer MD at 21:34 EST , Service support , Gallbladder Ultrasound 03/16/17 15:12 IMPRESSION: Normal right upper quadrant ultrasound examination. Electronically Signed: Neville Schaffer MD at 10:03 EST Tel [phone], Service support , Laboratory Tests 03/13/17 03/13/17 03/13/17 18:15 18:28 18:28 WBC 18.3 H RBC 4.18 L Hgb 12.4 Hct 36.3 L MCV 86.8 MCH 29.7 MCHC 34.2 RDW 15.2 H RDW Differential 48.8 H Plt Count 351 MPV 8.9 Immature Gran % (Auto) Neut % (Auto) Not Reportable Lymph % (Auto) Douglas % (Auto) Eos % (Auto) Baso % (Auto) Absolute Neuts (auto) 13.5 H Absolute Lymphs (auto) 2.93 Total Counted 100 Neutrophils % (Manual) 70 Band Neutrophils % 4 Lymphocytes % (Manual) 16 L Monocytes % (Manual) 5 Eosinophils % (Manual) 2 Basophils % (Manual) 1 Metamyelocytes % 2 H Myelocytes % Differential Comment SCANNED Diff Path Review Reviewed Platelet Estimate ADEQUATE RBC Morphology Target Cells 1+ ESR Sodium 135 L Potassium 3.4 L Chloride 102 Carbon Dioxide 22.0 Anion Gap 11 BUN 32 H Creatinine 1.98 H Estim Creat Clear Calc 28.24 Est GFR (MDRD) Af Amer 32 L Est GFR (MDRD) Non-Af 27 L BUN/Creatinine Ratio 16.2 Glucose 112 H Calcium 9.0 Phosphorus Magnesium Total Bilirubin 0.40 AST 19 ALT 78 Alkaline Phosphatase 412 H Troponin I < 0.02 C-React Prot Ext Range Total Protein 8.2 Albumin 2.9 L Globulin 5.3 H Albumin/Globulin Ratio 0.5 L Lipase 102 Urine Color Yellow Urine Clarity Sl. Cloudy Urine pH 6.0 Ur Specific [place] 1.010 Urine Protein 30 H Urine Glucose (UA) Normal Urine Ketones Negative Urine Occult Blood 150 H Urine Nitrite Positive H Urine Bilirubin Negative Urine Urobilinogen Normal Ur Leukocyte Esterase 500 H Urine RBC 10-25 SEEN Urine WBC 50-100 SEEN Ur Squamous Epith Cells 5-10 SEEN Amorphous Sediment 1+ URATE Urine Bacteria 1+ Urine Mucus 0 SEEN U Random Total Protein Ur Random Sodium Urine Creatinine Rheumatoid Factor CHARLEE Screen ABRAHAN-1 Antibody SS-A/Ro IgG Antibody SS-B/La IgG Antibody Sm (Sánchez) Antibody UNION CARPENTER Antibody Scl-70 Scleroderma Ab Double Strand DNA Ab Centromere B Antibody 03/13/17 03/14/17 03/14/17 18:28 06:00 06:00 WBC 15.9 H RBC 3.81 L Hgb 11.0 L Hct 33.5 L MCV 87.9 MCH 28.9 MCHC 32.8 RDW 15.4 H RDW Differential 49.6 H Plt Count 304 MPV 8.9 Immature Gran % (Auto) Neut % (Auto) Not Reportable Lymph % (Auto) Douglas % (Auto) Eos % (Auto) Baso % (Auto) Absolute Neuts (auto) 12.9 H Absolute Lymphs (auto) 1.59 Total Counted 100 Neutrophils % (Manual) 81 H Band Neutrophils % Lymphocytes % (Manual) 10 L Monocytes % (Manual) 6 Eosinophils % (Manual) 1 Basophils % (Manual) Metamyelocytes % 1 Myelocytes % 1 H Differential Comment Diff Path Review Reviewed Platelet Estimate ADEQUATE RBC Morphology NORM C+C Target Cells ESR Sodium 136 Potassium 3.5 Chloride 107 Carbon Dioxide 18.0 L Anion Gap 11 BUN 27 H Creatinine 1.60 H Estim Creat Clear Calc 23.84 Est GFR (MDRD) Af Amer 41 L Est GFR (MDRD) Non-Af 34 L BUN/Creatinine Ratio 16.9 Glucose 144 H Calcium 7.7 L Phosphorus Magnesium Total Bilirubin AST ALT Alkaline Phosphatase Troponin I C-React Prot Ext Range Total Protein Albumin Globulin Albumin/Globulin Ratio Lipase Urine Color Urine Clarity Urine pH Ur Specific [place] Urine Protein Urine Glucose (UA) Urine Ketones Urine Occult Blood Urine Nitrite Urine Bilirubin Urine Urobilinogen Ur Leukocyte Esterase Urine RBC Urine WBC Ur Squamous Epith Cells Amorphous Sediment Urine Bacteria Urine Mucus U Random Total Protein Ur Random Sodium Urine Creatinine Rheumatoid Factor CHARLEE Screen Positive H ABRAHAN-1 Antibody <0.2 SS-A/Ro IgG Antibody < 0.2 SS-B/La IgG Antibody 1.9 H Sm (Sánchez) Antibody <0.2 UNION CARPENTER Antibody <0.2 Scl-70 Scleroderma Ab <0.2 Double Strand DNA Ab <1 Centromere B Antibody <0.2 03/14/17 03/15/17 03/15/17 18:40 06:00 06:00 WBC 14.5 H RBC 3.70 L Hgb 10.7 L Hct 33.3 L MCV 90.0 MCH 28.9 MCHC 32.1 RDW 15.7 H RDW Differential 51.7 H Plt Count 252 MPV 8.8 Immature Gran % (Auto) PULVERIZER Neut % (Auto) PULVERIZER Lymph % (Auto) PULVERIZER Douglas % (Auto) PULVERIZER Eos % (Auto) PULVERIZER Baso % (Auto) PULVERIZER Absolute Neuts (auto) 12.3 H Absolute Lymphs (auto) 1.16 Total Counted Not Reportable Neutrophils % (Manual) 85 H Band Neutrophils % Lymphocytes % (Manual) 8 L Monocytes % (Manual) 7 Eosinophils % (Manual) Basophils % (Manual) Metamyelocytes % Myelocytes % Differential Comment Diff Path Review Reviewed Platelet Estimate ADEQUATE RBC Morphology NORM C+C Target Cells ESR Sodium 140 Potassium 3.6 Chloride 111 H Carbon Dioxide 21.0 Anion Gap 8 BUN 19 H Creatinine 1.53 H Estim Creat Clear Calc 24.93 Est GFR (MDRD) Af Amer 43 L Est GFR (MDRD) Non-Af 36 L BUN/Creatinine Ratio 12.4 Glucose 152 H Calcium 7.6 L Phosphorus 2.3 L Magnesium 2.3 Total Bilirubin 0.30 AST 9 L ALT 40 Alkaline Phosphatase 252 H Troponin I C-React Prot Ext Range Total Protein 6.2 L Albumin 2.1 L Globulin 4.1 Albumin/Globulin Ratio 0.5 L Lipase Urine Color Yellow Urine Clarity Clear Urine pH 6.0 Ur Specific Scotia 1.010 Urine Protein 30 H Urine Glucose (UA) Normal Urine Ketones Negative Urine Occult Blood 150 H Urine Nitrite Negative Urine Bilirubin Negative Urine Urobilinogen Normal Ur Leukocyte Esterase 500 H Urine RBC 0 SEEN Urine WBC 0-5 SEEN Ur Squamous Epith Cells 0 SEEN Amorphous Sediment Urine Bacteria 0 SEEN Urine Mucus 0 SEEN U Random Total Protein Ur Random Sodium Urine Creatinine Rheumatoid Factor CHARLEE Screen ABRAHAN-1 Antibody SS-A/Ro IgG Antibody SS-B/La IgG Antibody Sm (Sánchez) Antibody UNION CARPENTER Antibody Scl-70 Scleroderma Ab Double Strand DNA Ab Centromere B Antibody 03/15/17 03/15/17 03/15/17 06:00 06:00 06:00 WBC RBC Hgb Hct MCV MCH MCHC RDW RDW Differential Plt Count MPV Immature Gran % (Auto) Neut % (Auto) Lymph % (Auto) Douglas % (Auto) Eos % (Auto) Baso % (Auto) Absolute Neuts (auto) Absolute Lymphs (auto) Total Counted Neutrophils % (Manual) Band Neutrophils % Lymphocytes % (Manual) Monocytes % (Manual) Eosinophils % (Manual) Basophils % (Manual) Metamyelocytes % Myelocytes % Differential Comment Diff Path Review Platelet Estimate RBC Morphology Target Cells ESR 78 H Sodium Potassium Chloride Carbon Dioxide Anion Gap BUN Creatinine Estim Creat Clear Calc Est GFR (MDRD) Af Amer Est GFR (MDRD) Non-Af BUN/Creatinine Ratio Glucose Calcium Phosphorus Magnesium Total Bilirubin AST ALT Alkaline Phosphatase Troponin I C-React Prot Ext Range 99.20 H Total Protein Albumin Globulin Albumin/Globulin Ratio Lipase Urine Color Urine Clarity Urine pH Ur Specific [place] Urine Protein Urine Glucose (UA) Urine Ketones Urine Occult Blood Urine Nitrite Urine Bilirubin Urine Urobilinogen Ur Leukocyte Esterase Urine RBC Urine WBC Ur Squamous Epith Cells Amorphous Sediment Urine Bacteria Urine Mucus U Random Total Protein Ur Random Sodium Urine Creatinine Rheumatoid Factor < 10.0 CHARLEE Screen ABRAHAN-1 Antibody SS-A/Ro IgG Antibody SS-B/La IgG Antibody Sm (Sánchez) Antibody UNION CARPENTER Antibody Scl-70 Scleroderma Ab Double Strand DNA Ab Centromere B Antibody 03/15/17 03/15/17 03/15/17 15:50 15:50 15:50 WBC RBC Hgb Hct MCV MCH MCHC RDW RDW Differential Plt Count MPV Immature Gran % (Auto) Neut % (Auto) Lymph % (Auto) Douglas % (Auto) Eos % (Auto) Baso % (Auto) Absolute Neuts (auto) Absolute Lymphs (auto) Total Counted Neutrophils % (Manual) Band Neutrophils % Lymphocytes % (Manual) Monocytes % (Manual) Eosinophils % (Manual) Basophils % (Manual) Metamyelocytes % Myelocytes % Differential Comment Diff Path Review Platelet Estimate RBC Morphology Target Cells ESR Sodium Potassium Chloride Carbon Dioxide Anion Gap BUN Creatinine Estim Creat Clear Calc Est GFR (MDRD) Af Amer Est GFR (MDRD) Non-Af BUN/Creatinine Ratio Glucose Calcium Phosphorus Magnesium Total Bilirubin AST ALT Alkaline Phosphatase Troponin I C-React Prot Ext Range Total Protein Albumin Globulin Albumin/Globulin Ratio Lipase Urine Color Urine Clarity Urine pH Ur Specific [place] Urine Protein Urine Glucose (UA) Urine Ketones Urine Occult Blood Urine Nitrite Urine Bilirubin Urine Urobilinogen Ur Leukocyte Esterase Urine RBC Urine WBC Ur Squamous Epith Cells Amorphous Sediment Urine Bacteria Urine Mucus U Random Total Protein 11.0 Ur Random Sodium 42 Urine Creatinine 13.80 Rheumatoid Factor CHARLEE Screen ABRAHAN-1 Antibody SS-A/Ro IgG Antibody SS-B/La IgG Antibody Sm (Sánchez) Antibody UNION CARPENTER Antibody Scl-70 Scleroderma Ab Double Strand DNA Ab Centromere B Antibody 03/16/17 05:40 WBC RBC Hgb Hct MCV MCH MCHC RDW RDW Differential Plt Count MPV Immature Gran % (Auto) Neut % (Auto) Lymph % (Auto) Douglas % (Auto) Eos % (Auto) Baso % (Auto) Absolute Neuts (auto) Absolute Lymphs (auto) Total Counted Neutrophils % (Manual) Band Neutrophils % Lymphocytes % (Manual) Monocytes % (Manual) Eosinophils % (Manual) Basophils % (Manual) Metamyelocytes % Myelocytes % Differential Comment Diff Path Review Platelet Estimate RBC Morphology Target Cells ESR Sodium 144 Potassium 3.7 Chloride 111 H Carbon Dioxide 24.0 Anion Gap BUN 14 Creatinine 1.34 H Estim Creat Clear Calc 28.46 Est GFR (MDRD) Af Amer 50 L Est GFR (MDRD) Non-Af 42 L BUN/Creatinine Ratio 10.4 Glucose 107 Calcium 8.1 L Phosphorus 2.5 Magnesium Total Bilirubin AST ALT Alkaline Phosphatase Troponin I C-React Prot Ext Range Total Protein Albumin 2.3 L Globulin Albumin/Globulin Ratio Lipase Urine Color Urine Clarity Urine pH Ur Specific [place] Urine Protein Urine Glucose (UA) Urine Ketones Urine Occult Blood Urine Nitrite Urine Bilirubin Urine Urobilinogen Ur Leukocyte Esterase Urine RBC Urine WBC Ur Squamous Epith Cells Amorphous Sediment Urine Bacteria Urine Mucus U Random Total Protein Ur Random Sodium Urine Creatinine Rheumatoid Factor CHARLEE Screen ABRAHAN-1 Antibody SS-A/Ro IgG Antibody SS-B/La IgG Antibody Sm (Sánchez) Antibody UNION CARPENTER Antibody Scl-70 Scleroderma Ab Double Strand DNA Ab Centromere B Antibody Microbiology 03/13/17 23:45 Blood Culture (Wb) - Anticubital Right Blood Culture - Final No growth in 5 days. 03/13/17 23:36 Blood Culture (Wb) - Right Hand Blood Culture - Final No growth in 5 days. 03/14/17 18:40 Urine Catheter - Catheter Urine Culture - Final Culture exhibits no growth. 03/13/17 18:12 Mucosa - Nose Influenza Types A,B Direct FA (COREY) [facility] Procedures: None Summary of Care Provided: Patient is a 71-year-old female on no outpatient medications other than estradiol patch who presented to the emergency room at [facility] on 03/13/2017 complaining of poor appetite with generalized malaise, bilateral flank pain, epigastric pain and lower chest pressure. She stated her urine was cloudy but denied any urinary frequency, urgency or dysuria. She had no vomiting. Vital signs at presentation to the emergency room were temp 98.6, pulse rate 78, blood pressure 150/72, respiratory rate 18 and she was 97-100% saturated on room air. White blood cell count was elevated at 18.3 with 70% neutrophils and 4% bands. He had 2 metamyelocytes. Sodium was low at 135 and the potassium was low at 3.4. BUN was 32 and the creatinine was 1.98. The last creatinine we have on her is from 2014 and at that time it was 0.8. Alkaline phosphatase was elevated at 412 but the other LFTs were within normal limits. Lipase was 102. UA, collected by clean catch, showed 50-100 WBCs with 1+ bacteria and positive nitrites. There was +1 urate crystals. Chest x-ray showed a stable granuloma in the right midlung and no infiltrates. CT scan of the abdomen and pelvis showed colonic diverticulosis without definite evidence of acute inflammation. There was no hydronephrosis and no urolithiasis in the left side. The gallbladder appeared normal and so did the pancreas. Blood and urine cultures were sent. An influenza swab was negative. She was admitted to the hospital with a presumptive diagnosis of pyelonephritis and with PEPE. She had a straight cath that showed 0-5 WBCs and no nitrites done. Was done less than 24 hours after admission and she had had 1 dose of antibiotics. Culture on the specimen was negative. White blood cell count at admission was 18.3 and 03/15 had dropped to 14.5 with Rocephin 1 g IV daily. She was asymptomatic. Creatinine improved with hydration and decreased from 1.98 at admission to 1.34 at discharge. ESR was increased at 78 and the CRP was increased at 99.2. Rheumatoid factor was negative but an CHARLEE was positive. [id number] DNA was negative. SSB was increased at 1.9. Myalgias and arthralgias resolved during her hospital stay. She had a persistent epigastric/right upper quadrant pain and was treated with a PPI. She also had symptoms of chronic reflux. She was started on a PPI and as needed GI cocktails and at the time of discharge she had no symptoms. Gallbladder ultrasound was done and she had no stones and no evidence of any inflammation of the gallbladder wall. Was discharged on 03/06/2017 in good condition. Lungs were clear to auscultation and the heart had a regular rate and rhythm without gallop. The abdomen was soft, nontender, nondistended with no masses and no guarding with palpation. No peripheral edema. She is going to follow-up with Dr. Nallely Valenzuela in 2 weeks to follow her kidney function and follow-up on the positive CHARLEE with elevated ESR and CRP. She was given a prescription for amlodipine for blood pressure control and pantoprazole. 1 tablet twice daily for the next 2 weeks and then decrease to 1 daily. She is going to follow-up with her primary care physician, Dr. Ke Allan, in 10 days. Urine culture had no growth and she was asymptomatic so antibiotics were not continued at discharge. She did receive 3 days of Rocephin during her hospital stay. This note was generated with [employer] software. It may contain incorrect words, spelling, and punctuation that were not noted in checking the note before signing. Discharge Activity: Return to Normal Activity Call your doctor if you observe: Fever of 101 or Higher, Inability to urinate, Shortness of breath, - - diarrhea, shaking chills, burning with urination, rash, painful sores in the mouth, vaginal itching Home Medications: Medications to take at Discharge Estradiol [Vivelle-Dot, Estraderm] 0.1 mg TRANSDERM. QWEEK 03/13/17 Amlodipine [Norvasc] 5 mg PO DAILY #30 tab 03/16/17 Levofloxacin [Levaquin] 250 mg PO DAILY #4 tab 03/16/17 Pantoprazole Sodium [Protonix] 40 mg PO BID #46 tab 03/16/17 Following Prescrptions Were Given to Patient: Amlodipine [Norvasc] 5 mg PO DAILY #30 tab Levofloxacin [Levaquin] 250 mg PO DAILY #4 tab Pantoprazole Sodium [Protonix] 40 mg PO BID #46 tab Primary Care Physician: Steve Allan MD [Primary Care Provider] - Please follow up with your Primary Care Physician in: 10 days Please Follow Up With: Nallely Valenzuela DO When: 2 weeks Disposition: Home Minutes spent on discharge:: 35 Meaningful Use Info Meaningful Use Diagnoses (Choose all that apply): None applicable Code Visit Inpatient E&M: 08231 Disch Hosp
--- NOTE | 2017-03-16 17:48 | DS.PCM_ITS ---
Discharge Date and Diagnosis Date of Admission: 03/13/17 Date of Discharge: 03/16/17 - Primary Discharge Diagnosis Active and Suspected Problems Pyelonephritis (Acute) PEPE (acute kidney injury) (Acute) Hyponatremia (Acute) dehydration - Secondary Discharge Diagnosis suspected HTN chronic NSAID use Hospital Course and Treatment Imaging Results: 03/16/17 15:12 Gallbladder [US] Urgent Clinical Impression(s) from Imaging Studies Chest X-Ray 03/13/17 17:40 IMPRESSION: 1. No airspace consolidation or pleural effusion. Electronically Signed: Kwaku Rea MD at 18:57 EST , Service support , Abdomen/Pelvis CT 03/13/17 19:43 IMPRESSION: Colonic diverticulosis without definite evidence of acute inflammation. No definite urolithiasis or hydronephrosis to explain left flank pain. Electronically Signed: Franky Palmer MD at 21:34 EST , Service support , Gallbladder Ultrasound 03/16/17 15:12 IMPRESSION: Normal right upper quadrant ultrasound examination. Electronically Signed: Nveille Schaffer MD at 10:03 EST Tel [phone], Service support , Laboratory Tests 03/13/17 03/13/17 03/13/17 18:15 18:28 18:28 WBC 18.3 H RBC 4.18 L Hgb 12.4 Hct 36.3 L MCV 86.8 MCH 29.7 MCHC 34.2 RDW 15.2 H RDW Differential 48.8 H Plt Count 351 MPV 8.9 Immature Gran % (Auto) Neut % (Auto) Not Reportable Lymph % (Auto) [place] % (Auto) Eos % (Auto) Baso % (Auto) Absolute Neuts (auto) 13.5 H Absolute Lymphs (auto) 2.93 Total Counted 100 Neutrophils % (Manual) 70 Band Neutrophils % 4 Lymphocytes % (Manual) 16 L Monocytes % (Manual) 5 Eosinophils % (Manual) 2 Basophils % (Manual) 1 Metamyelocytes % 2 H Myelocytes % Differential Comment SCANNED Diff Path Review Reviewed Platelet Estimate ADEQUATE RBC Morphology Target Cells 1+ ESR Sodium 135 L Potassium 3.4 L Chloride 102 Carbon Dioxide 22.0 Anion Gap 11 BUN 32 H Creatinine 1.98 H Estim Creat Clear Calc 28.24 Est GFR (MDRD) Af Amer 32 L Est GFR (MDRD) Non-Af 27 L BUN/Creatinine Ratio 16.2 Glucose 112 H Calcium 9.0 Phosphorus Magnesium Total Bilirubin 0.40 AST 19 ALT 78 Alkaline Phosphatase 412 H Troponin I < 0.02 C-React Prot Ext Range Total Protein 8.2 Albumin 2.9 L Globulin 5.3 H Albumin/Globulin Ratio 0.5 L Lipase 102 Urine Color Yellow Urine Clarity Sl. Cloudy Urine pH 6.0 Ur Specific [place] 1.010 Urine Protein 30 H Urine Glucose (UA) Normal Urine Ketones Negative Urine Occult Blood 150 H Urine Nitrite Positive H Urine Bilirubin Negative Urine Urobilinogen Normal Ur Leukocyte Esterase 500 H Urine RBC 10-25 SEEN Urine WBC 50-100 SEEN Ur Squamous Epith Cells 5-10 SEEN Amorphous Sediment 1+ URATE Urine Bacteria 1+ Urine Mucus 0 SEEN U Random Total Protein Ur Random Sodium Urine Creatinine Rheumatoid Factor CHARLEE Screen ABRAHAN-1 Antibody SS-A/Ro IgG Antibody SS-B/La IgG Antibody Sm (Sánchez) Antibody CHORUS DANCER Antibody Scl-70 Scleroderma Ab Double Strand DNA Ab Centromere B Antibody 03/13/17 03/14/17 03/14/17 18:28 06:00 06:00 WBC 15.9 H RBC 3.81 L Hgb 11.0 L Hct 33.5 L MCV 87.9 MCH 28.9 MCHC 32.8 RDW 15.4 H RDW Differential 49.6 H Plt Count 304 MPV 8.9 Immature Gran % (Auto) Neut % (Auto) Not Reportable Lymph % (Auto) [place] % (Auto) Eos % (Auto) Baso % (Auto) Absolute Neuts (auto) 12.9 H Absolute Lymphs (auto) 1.59 Total Counted 100 Neutrophils % (Manual) 81 H Band Neutrophils % Lymphocytes % (Manual) 10 L Monocytes % (Manual) 6 Eosinophils % (Manual) 1 Basophils % (Manual) Metamyelocytes % 1 Myelocytes % 1 H Differential Comment Diff Path Review Reviewed Platelet Estimate ADEQUATE RBC Morphology NORM C+C Target Cells ESR Sodium 136 Potassium 3.5 Chloride 107 Carbon Dioxide 18.0 L Anion Gap 11 BUN 27 H Creatinine 1.60 H Estim Creat Clear Calc 23.84 Est GFR (MDRD) Af Amer 41 L Est GFR (MDRD) Non-Af 34 L BUN/Creatinine Ratio 16.9 Glucose 144 H Calcium 7.7 L Phosphorus Magnesium Total Bilirubin AST ALT Alkaline Phosphatase Troponin I C-React Prot Ext Range Total Protein Albumin Globulin Albumin/Globulin Ratio Lipase Urine Color Urine Clarity Urine pH Ur Specific [place] Urine Protein Urine Glucose (UA) Urine Ketones Urine Occult Blood Urine Nitrite Urine Bilirubin Urine Urobilinogen Ur Leukocyte Esterase Urine RBC Urine WBC Ur Squamous Epith Cells Amorphous Sediment Urine Bacteria Urine Mucus U Random Total Protein Ur Random Sodium Urine Creatinine Rheumatoid Factor CHARLEE Screen Positive H ABRAHAN-1 Antibody <0.2 SS-A/Ro IgG Antibody < 0.2 SS-B/La IgG Antibody 1.9 H Sm (Sánchez) Antibody <0.2 CHORUS DANCER Antibody <0.2 Scl-70 Scleroderma Ab <0.2 Double Strand DNA Ab <1 Centromere B Antibody <0.2 03/14/17 03/15/17 03/15/17 18:40 06:00 06:00 WBC 14.5 H RBC 3.70 L Hgb 10.7 L Hct 33.3 L MCV 90.0 MCH 28.9 MCHC 32.1 RDW 15.7 H RDW Differential 51.7 H Plt Count 252 MPV 8.8 Immature Gran % (Auto) [employer] SECRETARY [employer]PER Neut % (Auto) [employer] SECR[employer]ARY AND HAND[employer]PER Lymph % (Auto) [employer] SECRETARY AND HANDICAPPER [place] % (Auto) [employer] SECRETARY AND HANDIC[employer]PER Eos % (Auto) [employer] SECRETARY AND HANDICAPPER Baso % (Auto) [employer]ING SECRETARY AND HANDICAPPER Absolute Neuts (auto) 12.3 H Absolute Lymphs (auto) 1.16 Total Counted Not Reportable Neutrophils % (Manual) 85 H Band Neutrophils % Lymphocytes % (Manual) 8 L Monocytes % (Manual) 7 Eosinophils % (Manual) Basophils % (Manual) Metamyelocytes % Myelocytes % Differential Comment Diff Path Review Reviewed Platelet Estimate ADEQUATE RBC Morphology NORM C+C Target Cells ESR Sodium 140 Potassium 3.6 Chloride 111 H Carbon Dioxide 21.0 Anion Gap 8 BUN 19 H Creatinine 1.53 H Estim Creat Clear Calc 24.93 Est GFR (MDRD) Af Amer 43 L Est GFR (MDRD) Non-Af 36 L BUN/Creatinine Ratio 12.4 Glucose 152 H Calcium 7.6 L Phosphorus 2.3 L Magnesium 2.3 Total Bilirubin 0.30 AST 9 L ALT 40 Alkaline Phosphatase 252 H Troponin I C-React Prot Ext Range Total Protein 6.2 L Albumin 2.1 L Globulin 4.1 Albumin/Globulin Ratio 0.5 L Lipase Urine Color Yellow Urine Clarity Clear Urine pH 6.0 Ur Specific [place] 1.010 Urine Protein 30 H Urine Glucose (UA) Normal Urine Ketones Negative Urine Occult Blood 150 H Urine Nitrite Negative Urine Bilirubin Negative Urine Urobilinogen Normal Ur Leukocyte Esterase 500 H Urine RBC 0 SEEN Urine WBC 0-5 SEEN Ur Squamous Epith Cells 0 SEEN Amorphous Sediment Urine Bacteria 0 SEEN Urine Mucus 0 SEEN U Random Total Protein Ur Random Sodium Urine Creatinine Rheumatoid Factor CHARLEE Screen ABRAHAN-1 Antibody SS-A/Ro IgG Antibody SS-B/La IgG Antibody Sm (Sánchez) Antibody CHORUS DANCER Antibody Scl-70 Scleroderma Ab Double Strand DNA Ab Centromere B Antibody 03/15/17 03/15/17 03/15/17 06:00 06:00 06:00 WBC RBC Hgb Hct MCV MCH MCHC RDW RDW Differential Plt Count MPV Immature Gran % (Auto) Neut % (Auto) Lymph % (Auto) [place] % (Auto) Eos % (Auto) Baso % (Auto) Absolute Neuts (auto) Absolute Lymphs (auto) Total Counted Neutrophils % (Manual) Band Neutrophils % Lymphocytes % (Manual) Monocytes % (Manual) Eosinophils % (Manual) Basophils % (Manual) Metamyelocytes % Myelocytes % Differential Comment Diff Path Review Platelet Estimate RBC Morphology Target Cells ESR 78 H Sodium Potassium Chloride Carbon Dioxide Anion Gap BUN Creatinine Estim Creat Clear Calc Est GFR (MDRD) Af Amer Est GFR (MDRD) Non-Af BUN/Creatinine Ratio Glucose Calcium Phosphorus Magnesium Total Bilirubin AST ALT Alkaline Phosphatase Troponin I C-React Prot Ext Range 99.20 H Total Protein Albumin Globulin Albumin/Globulin Ratio Lipase Urine Color Urine Clarity Urine pH Ur Specific [place] Urine Protein Urine Glucose (UA) Urine Ketones Urine Occult Blood Urine Nitrite Urine Bilirubin Urine Urobilinogen Ur Leukocyte Esterase Urine RBC Urine WBC Ur Squamous Epith Cells Amorphous Sediment Urine Bacteria Urine Mucus U Random Total Protein Ur Random Sodium Urine Creatinine Rheumatoid Factor < 10.0 CHARLEE Screen ABRAHAN-1 Antibody SS-A/Ro IgG Antibody SS-B/La IgG Antibody Sm (Sánchez) Antibody CHORUS DANCER Antibody Scl-70 Scleroderma Ab Double Strand DNA Ab Centromere B Antibody 03/15/17 03/15/17 03/15/17 15:50 15:50 15:50 WBC RBC Hgb Hct MCV MCH MCHC RDW RDW Differential Plt Count MPV Immature Gran % (Auto) Neut % (Auto) Lymph % (Auto) [place] % (Auto) Eos % (Auto) Baso % (Auto) Absolute Neuts (auto) Absolute Lymphs (auto) Total Counted Neutrophils % (Manual) Band Neutrophils % Lymphocytes % (Manual) Monocytes % (Manual) Eosinophils % (Manual) Basophils % (Manual) Metamyelocytes % Myelocytes % Differential Comment Diff Path Review Platelet Estimate RBC Morphology Target Cells ESR Sodium Potassium Chloride Carbon Dioxide Anion Gap BUN Creatinine Estim Creat Clear Calc Est GFR (MDRD) Af Amer Est GFR (MDRD) Non-Af BUN/Creatinine Ratio Glucose Calcium Phosphorus Magnesium Total Bilirubin AST ALT Alkaline Phosphatase Troponin I C-React Prot Ext Range Total Protein Albumin Globulin Albumin/Globulin Ratio Lipase Urine Color Urine Clarity Urine pH Ur Specific [place] Urine Protein Urine Glucose (UA) Urine Ketones Urine Occult Blood Urine Nitrite Urine Bilirubin Urine Urobilinogen Ur Leukocyte Esterase Urine RBC Urine WBC Ur Squamous Epith Cells Amorphous Sediment Urine Bacteria Urine Mucus U Random Total Protein 11.0 Ur Random Sodium 42 Urine Creatinine 13.80 Rheumatoid Factor CHARLEE Screen ABRAHAN-1 Antibody SS-A/Ro IgG Antibody SS-B/La IgG Antibody Sm (Sánchez) Antibody CHORUS DANCER Antibody Scl-70 Scleroderma Ab Double Strand DNA Ab Centromere B Antibody 03/16/17 05:40 WBC RBC Hgb Hct MCV MCH MCHC RDW RDW Differential Plt Count MPV Immature Gran % (Auto) Neut % (Auto) Lymph % (Auto) [place] % (Auto) Eos % (Auto) Baso % (Auto) Absolute Neuts (auto) Absolute Lymphs (auto) Total Counted Neutrophils % (Manual) Band Neutrophils % Lymphocytes % (Manual) Monocytes % (Manual) Eosinophils % (Manual) Basophils % (Manual) Metamyelocytes % Myelocytes % Differential Comment Diff Path Review Platelet Estimate RBC Morphology Target Cells ESR Sodium 144 Potassium 3.7 Chloride 111 H Carbon Dioxide 24.0 Anion Gap BUN 14 Creatinine 1.34 H Estim Creat Clear Calc 28.46 Est GFR (MDRD) Af Amer 50 L Est GFR (MDRD) Non-Af 42 L BUN/Creatinine Ratio 10.4 Glucose 107 Calcium 8.1 L Phosphorus 2.5 Magnesium Total Bilirubin AST ALT Alkaline Phosphatase Troponin I C-React Prot Ext Range Total Protein Albumin 2.3 L Globulin Albumin/Globulin Ratio Lipase Urine Color Urine Clarity Urine pH Ur Specific [place] Urine Protein Urine Glucose (UA) Urine Ketones Urine Occult Blood Urine Nitrite Urine Bilirubin Urine Urobilinogen Ur Leukocyte Esterase Urine RBC Urine WBC Ur Squamous Epith Cells Amorphous Sediment Urine Bacteria Urine Mucus U Random Total Protein Ur Random Sodium Urine Creatinine Rheumatoid Factor CHARLEE Screen ABRAHAN-1 Antibody SS-A/Ro IgG Antibody SS-B/La IgG Antibody Sm (Sánchez) Antibody CHORUS DANCER Antibody Scl-70 Scleroderma Ab Double Strand DNA Ab Centromere B Antibody Microbiology 03/13/17 23:45 Blood Culture (Wb) - Anticubital Right Blood Culture - Final No growth in 5 days. 03/13/17 23:36 Blood Culture (Wb) - Right Hand Blood Culture - Final No growth in 5 days. 03/14/17 18:40 Urine Catheter - Catheter Urine Culture - Final Culture exhibits no growth. 03/13/17 18:12 Mucosa - Nose Influenza Types A,B Direct FA (COREY) - [facility] None Procedures: None Summary of Care Provided: Patient is a 71-year-old female on no outpatient medications other than estradiol patch who presented to the emergency room at [facility] on 03/13/2017 complaining of poor appetite with generalized malaise, bilateral flank pain, epigastric pain and lower chest pressure. She stated her urine was cloudy but denied any urinary frequency, urgency or dysuria. She had no vomiting. Vital signs at presentation to the emergency room were temp 98.6, pulse rate 78, blood pressure 150/72, respiratory rate 18 and she was 97-100% saturated on room air. White blood cell count was elevated at 18.3 with 70% neutrophils and 4% bands. He had 2 metamyelocytes. Sodium was low at 135 and the potassium was low at 3.4. BUN was 32 and the creatinine was 1.98. The last creatinine we have on her is from 2014 and at that time it was 0.8. Alkaline phosphatase was elevated at 412 but the other LFTs were within normal limits. Lipase was 102. UA, collected by clean catch, showed 50-100 WBCs with 1+ bacteria and positive nitrites. There was +1 urate crystals. Chest x- ray showed a stable granuloma in the right midlung and no infiltrates. CT scan of the abdomen and pelvis showed colonic diverticulosis without definite evidence of acute inflammation. There was no hydronephrosis and no urolithiasis in the left side. The gallbladder appeared normal and so did the pancreas. Blood and urine cultures were sent. An influenza swab was negative. She was admitted to the hospital with a presumptive diagnosis of pyelonephritis and with PEPE. She had a straight cath that showed 0-5 WBCs and no nitrites done. Was done less than 24 hours after admission and she had had 1 dose of antibiotics. Culture on the specimen was negative. White blood cell count at admission was 18.3 and 03/15 had dropped to 14.5 with Rocephin 1 g IV daily. She was asymptomatic. Creatinine improved with hydration and decreased from 1.98 at admission to 1.34 at discharge. ESR was increased at 78 and the CRP was increased at 99.2. Rheumatoid factor was negative but an CHARLEE was positive. [id number] DNA was negative. SSB was increased at 1.9. Myalgias and arthralgias resolved during her hospital stay. She had a persistent epigastric/right upper quadrant pain and was treated with a PPI. She also had symptoms of chronic reflux. She was started on a PPI and as needed GI cocktails and at the time of discharge she had no symptoms. Gallbladder ultrasound was done and she had no stones and no evidence of any inflammation of the gallbladder wall. Was discharged on 03/06/2017 in good condition. Lungs were clear to auscultation and the heart had a regular rate and rhythm without gallop. The abdomen was soft, nontender, nondistended with no masses and no guarding with palpation. No peripheral edema. She is going to follow-up with Dr. Nallely Valenzuela in 2 weeks to follow her kidney function and follow-up on the positive CHARLEE with elevated ESR and CRP. She was given a prescription for amlodipine for blood pressure control and pantoprazole. 1 tablet twice daily for the next 2 weeks and then decrease to 1 daily. She is going to follow-up with her primary care physician, Dr. Ke Allan, in 10 days. Urine culture had no growth and she was asymptomatic so antibiotics were not continued at discharge. She did receive 3 days of Rocephin during her hospital stay. This note was generated with [employer] software. It may contain incorrect words, spelling, and punctuation that were not noted in checking the note before signing. Discharge Activity: Return to Normal Activity Call your doctor if you observe: Fever of 101 or Higher, Inability to urinate, Shortness of breath, - - diarrhea, shaking chills, burning with urination, rash , painful sores in the mouth, vaginal itching Home Medications: Medications to take at Discharge Estradiol [Vivelle-Dot, Estraderm] 0.1 mg TRANSDERM. QWEEK 03/13/17 Amlodipine [Norvasc] 5 mg PO DAILY #30 tab 03/16/17 Levofloxacin [Levaquin] 250 mg PO DAILY #4 tab 03/16/17 Pantoprazole Sodium [Protonix] 40 mg PO BID #46 tab 03/16/17 Following Prescrptions Were Given to Patient: Amlodipine [Norvasc] 5 mg PO DAILY #30 tab Levofloxacin [Levaquin] 250 mg PO DAILY #4 tab Pantoprazole Sodium [Protonix] 40 mg PO BID #46 tab Primary Care Physician: Steve Allan MD [Primary Care Provider] - Please follow up with your Primary Care Physician in: 10 days Please Follow Up With: Nallely Valenzuela DO When: 2 weeks Disposition: Home Minutes spent on discharge:: 35 Meaningful Use Info Meaningful Use Diagnoses (Choose all that apply): None applicable Code Visit Inpatient E&M: 14183 Disch Hosp
[2017-03-17 15:18] LABS: Anti-dsDNA Ab <1 IU/mL (0-9)
== END 2017-03-16 17:52 | disposition home or self-care (01) | DRG 683 ==
LOC: ED 22:19 → MS3 23:05
PROVIDERS: Internal Medicine Nephrology; Admitting Provider Internal Medicine; Emergency Provider Emergency Medicine; Family Provider Family Medicine; PCP Family Medicine; Visit Provider Internal Medicine
DX: N17.9 Acute kidney failure, unspecified (principal); E87.1 Hypo-osmolality and hyponatremia; B34.9 Viral infection, unspecified; R49.0 Dysphonia; M19.90 Unspecified osteoarthritis, unspecified site; E86.0 Dehydration; Z79.1 Long term (current) use of non-steroidal anti-inflammatories (NSAID); Z87.891 Personal history of nicotine dependence
CPT/HCPCS: 36415; 71046; 74176; 76705; 80048; 80053; 80069; 81001; 82570; 83690; 83735; 84100; 84156; 84300; 84484; 85025; 85652; 86038; 86140; 86225; 86235; 86431; 87040; 87086; 87804; 93005; 97802; 99285; J7030; A4216; J2405

== ENCOUNTER → 2017-04-22 12:26 | Outpatient (CLI) | payer MEDICARE, OTHER, SELFPAY ==
[2017-04-22 14:07] LABS: Erythrocyte Sedimentation Rate 38 mm/hr (0-30)
[2017-04-22 14:10] LABS: Absolute Lymphocyte Count 1.17 X10^3/ul (0.83-4.51); Absolute Neutrophil Count 4.6 X10^3/uL (2.0-7.7); Basophil# 0.03 X10^3/uL; Basophil% 0.5 % (0-1); Eosinophil# 0.16 X10^3/uL; Eosinophils% 2.5 % (0-5); Hematocrit 33.5 % (37-47); Hemoglobin 10.7 g/dl (12.0-15.0); Immature Platelet Fraction 1.2 % (1.0-7.9); Lymphocyte # 1.17 X10^3/ul (4.0); Lymphocyte % 18.2 % (19-41); Mean Corp Hgb Conc 31.9 g/gl (32-36); Mean Corpuscular Hgb 29.3 pg (27.0-32.0); Mean Corpuscular Volume 91.8 fL (81-99); Mean Platelet Vol. 8.9 fl (6.2-12.0); Monocyte# 0.46 X10^3/uL; Monocyte% 7.1 % (0-10); Neutrophil % 71.4 % (47-70); Platelet Count 328 K/mm3 (150-450); RBC Distribution Width CV 14.7 % (11.6-14.6); RBC Distribution Width SD 48.9 fl (35.1-43.9); RET-HE 31.1 pg (30-35); Red Blood Count 3.65 M/mm3 (4.2-5.4); Reticulocyte Count 2.12 % (0.5-1.5); White Blood Count 6.4 K/mm3 (4.4-11.0)
[2017-04-22 14:11] LABS: POSITIVE COUNT NO; POSITIVE DIFFERENTIAL NO; POSITIVE MORPHOLOGY NO
[2017-04-22 14:31] LABS: Anion Gap 8 (5-15); BUN 15 mg/dL (7-18); BUN/Creat Ratio 10.9 RATIO (10-20); Calcium,Total 8.9 mg/dL (8.5-10.1); Chloride 103 mmol/L (98-107); Creatinine, Serum 1.38 mg/dL (0.55-1.02); EST Glomerular Filtration Rate 40 mL/min (>60); Est Glom Filt Rate - Afr Amer 49 mL/min (>60); Ferritin 104 ng/mL (8-252); Glucose 100 mg/dL (74-106); Iron 43 ug/dL (50-170); Iron Binding Capacity,Total 348 ug/dL (250-450); Potassium 3.7 mmol/L (3.5-5.1); Sodium Level 140 mmol/L (136-145)
[2017-04-24 08:52] LABS: Transferrin 273 mg/dL (200-370)
== END ==
PROVIDERS: Family Medicine; Family Provider Family Medicine; PCP Family Medicine; Visit Provider Family Medicine
DX: I10 Essential (primary) hypertension (principal); R76.8 Other specified abnormal immunological findings in serum; D64.9 Anemia, unspecified
CPT/HCPCS: 36415; 80048; 82728; 83540; 83550; 84466; 85025; 85045; 85652; 86140

== ENCOUNTER → 2017-05-31 11:43 | Outpatient (CLI) | payer MEDICARE, OTHER, SELFPAY ==
[2017-05-31 12:01] LABS: Bacteria 0 SEEN /hpf (None Seen); Mucous, Urine 0 SEEN /hpf (<or=2+); Red Blood Cells-Urine 0 SEEN /hpf (0-5)
[2017-05-31 12:51] LABS: Erythrocyte Sedimentation Rate 33 mm/hr (0-30)
[2017-05-31 12:54] LABS: Absolute Lymphocyte Count 1.55 X10^3/ul (0.83-4.51); Absolute Neutrophil Count 6.4 X10^3/uL (2.0-7.7); Basophil# 0.03 X10^3/uL; Basophil% 0.4 % (0-1); Eosinophil# 0.12 X10^3/uL; Eosinophils% 1.4 % (0-5); Hemoglobin 12.7 g/dl (12.0-15.0); Lymphocyte # 1.55 X10^3/ul (4.0); Lymphocyte % 18.1 % (19-41); Mean Corp Hgb Conc 32.6 g/gl (32-36); Mean Platelet Vol. 9.4 fl (6.2-12.0); Monocyte# 0.47 X10^3/uL; Monocyte% 5.5 % (0-10); Neutrophil # 6.36 X10^3/uL (2.7-7.7); Neutrophil % 74.5 % (47-70); POSITIVE COUNT NO; POSITIVE DIFFERENTIAL NO; POSITIVE MORPHOLOGY NO; Platelet Count 367 K/mm3 (150-450); RBC Distribution Width CV 13.9 % (11.6-14.6); RBC Distribution Width SD 46.1 fl (35.1-43.9); Red Blood Count 4.24 M/mm3 (4.2-5.4); White Blood Count 8.5 K/mm3 (4.4-11.0)
[2017-05-31 13:01] LABS: Protein, Urine (Random) 7.8 mg/dL (<11.9); Protein:Creat Ratio 298 mg/g CRE (0-200)
[2017-05-31 13:04] LABS: Color, Urine Yellow (Yellow); Glucose, Dipstick Normal (Normal); Ketone-Dipstick Negative (Negative); Leukocyte Esterase-Dipstick 25 /ul (Negative); Nitrite-Dipstick Negative (Negative); Occult Blood-Urine 10 /ul (Negative); Protein-Dipstick Negative (Negative); Urine Bilirubin Dipstick Negative (Negative); Urine Clarity Clear (Clear); Urine Urobilinogen Normal (Normal)
[2017-05-31 13:10] LABS: Squamous Epithelial Cells - UA 0-5 SEEN /hpf (5-10); White Blood Cells 0-5 SEEN /hpf (0-5)
[2017-05-31 13:19] LABS: ALB/GLOB Ratio 0.9 RATIO (0.9-2.4); AST(SGOT) 19 U/L (15-37); Alanine Aminotransfer ALT/SGPT 36 U/L (13-56); Albumin, Serum 3.9 g/dL (3.2-5.0); Alkaline Phosphatase 125 U/L (45-117); Anion Gap 8 (5-15); BUN 25 mg/dL (7-18); BUN/Creat Ratio 19.5 RATIO (10-20); Calcium,Total 9.2 mg/dL (8.5-10.1); Chloride 102 mmol/L (98-107); Creatinine, Serum 1.28 mg/dL (0.55-1.02); EST Glomerular Filtration Rate 44 mL/min (>60); Est Glom Filt Rate - Afr Amer 53 mL/min (>60); Globulin 4.4 g/dL (2.2-4.2); Glucose 102 mg/dL (74-106); Potassium 3.8 mmol/L (3.5-5.1); Protein, Total 8.3 g/dL (6.4-8.2); Rheumatoid Factor < 10.0 IU/mL (<15); Sodium Level 137 mmol/L (136-145)
[2017-05-31 13:24] LABS: BUN 26 mg/dL (7-18); BUN/Creat Ratio 21.3 RATIO (10-20); Calcium,Total 9.1 mg/dL (8.5-10.1); Chloride 105 mmol/L (98-107); Creatinine, Serum 1.22 mg/dL (0.55-1.02); EST Glomerular Filtration Rate 46 mL/min (>60); Est Glom Filt Rate - Afr Amer 56 mL/min (>60); Glucose 103 mg/dL (74-106); Phosphorus 3.8 mg/dL (2.5-4.9); Potassium 3.9 mmol/L (3.5-5.1); Sodium Level 138 mmol/L (136-145)
[2017-06-01 14:08] LABS: Anti-Centromere B Ab <0.2 AI (0.0-0.9); Anti-Jo <0.2 AI (0.0-0.9); Anti-Scleroderma-70 AB <0.2 AI (0.0-0.9); RNP Ab <0.2 AI (0.0-0.9); SJOGREN'S Anti-SS-A test < 0.2 AI (0.0-0.9); SJOGREN'S Anti-SS-B test 1.9 AI (0.0-0.9); Smith Ab <0.2 AI (0.0-0.9)
[2017-06-01 15:46] LABS: ANTINUCLEAR ANTIBODIES DIRECT Positive (Negative); Anti-dsDNA Ab <1 IU/mL (0-9)
[2017-06-02 03:07] LABS: Complement C3 139 mg/dL (82-167)
[2017-06-02 09:31] LABS: CCP IgG Antibodies 43 units (0-19); HEPATITIS B SURFACE AG Negative (Negative); Hep B Surface Antibodies Non Reactive (.)
== END ==
PROVIDERS: Internal Medicine Rheumatology; Family Provider Family Medicine; PCP Family Medicine; Visit Provider Internal Medicine Nephrology
DX: M06.4 Inflammatory polyarthropathy (principal); M35.00 Sjogren syndrome, unspecified
CPT/HCPCS: 36415; 80053; 80069; 81001; 82570; 84156; 85025; 85652; 86038; 86140; 86160; 86200; 86225; 86235; 86431; 86706; 87340

== ENCOUNTER → 2017-09-01 12:06 | Outpatient (CLI) | payer MEDICARE, OTHER, SELFPAY ==
[2017-09-01 12:49] LABS: Absolute Lymphocyte Count 1.28 X10^3/ul (0.83-4.51); Absolute Neutrophil Count 4.6 X10^3/uL (2.0-7.7); Basophil# 0.04 X10^3/uL; Basophil% 0.6 % (0-1); Eosinophil# 0.16 X10^3/uL; Eosinophils% 2.5 % (0-5); Hematocrit 36.5 % (37-47); Hemoglobin 11.9 g/dl (12.0-15.0); Lymphocyte # 1.28 X10^3/ul (4.0); Lymphocyte % 20.2 % (19-41); Mean Corp Hgb Conc 32.6 g/gl (32-36); Mean Corpuscular Volume 88.8 fL (81-99); Mean Platelet Vol. 9.8 fl (6.2-12.0); Monocyte% 3.2 % (0-10); Neutrophil # 4.64 X10^3/uL (2.7-7.7); Neutrophil % 73.3 % (47-70); Platelet Count 265 K/mm3 (150-450); RBC Distribution Width SD 45.5 fl (35.1-43.9); Red Blood Count 4.11 M/mm3 (4.2-5.4); White Blood Count 6.3 K/mm3 (4.4-11.0)
[2017-09-01 12:51] LABS: POSITIVE COUNT NO; POSITIVE DIFFERENTIAL NO; POSITIVE MORPHOLOGY NO
[2017-09-01 12:57] LABS: Protein, Urine (Random) 8.9 mg/dL (<11.9); Protein:Creat Ratio 231 mg/g CRE (0-200)
[2017-09-01 13:17] LABS: AST(SGOT) 20 U/L (15-37); Alanine Aminotransfer ALT/SGPT 35 U/L (13-56); Albumin, Serum 3.6 g/dL (3.2-5.0); Alkaline Phosphatase 100 U/L (45-117); Anion Gap 9 (5-15); BUN 22 mg/dL (7-18); BUN/Creat Ratio 16.3 RATIO (10-20); Calcium,Total 8.7 mg/dL (8.5-10.1); Chloride 107 mmol/L (98-107); Creatinine, Serum 1.35 mg/dL (0.55-1.02); EST Glomerular Filtration Rate 41 mL/min (>60); Est Glom Filt Rate - Afr Amer 50 mL/min (>60); Globulin 3.5 g/dL (2.2-4.2); Glucose 229 mg/dL (74-106); Phosphorus 3.4 mg/dL (2.5-4.9); Potassium 3.8 mmol/L (3.5-5.1); Protein, Total 7.1 g/dL (6.4-8.2); Sodium Level 142 mmol/L (136-145)
== END ==
PROVIDERS: Family Provider Family Medicine; PCP Family Medicine; Visit Provider Internal Medicine Nephrology
DX: N17.9 Acute kidney failure, unspecified (principal); R76.8 Other specified abnormal immunological findings in serum; M06.4 Inflammatory polyarthropathy; M35.00 Sjogren syndrome, unspecified; I10 Essential (primary) hypertension
CPT/HCPCS: 80053; 82570; 84100; 84156; 85025

== ENCOUNTER 2017-12-16 08:05 | Day surgery (SDC) | payer MEDICARE, OTHER, SELFPAY ==
--- NOTE | 2017-12-16 | GASB_PTH ---
PATIENT: LAILA BUCHANAN LOC: EN U#:[id number] AGE/SX: 72/F ROOM: RE12/16/[address]: Dr. Kevin Tyson MD : 1945 BED: DIS: 12/16/2017 SPEC #: [id number] RECD: 12/16/17 15:12 STATUS: CHALINO MELITON #: [id number] ANABEL: 12/16/17 00:[address]: Kevin Tyson DEPT: SURGICAL PATHOLOGY RECD BY: Saman Mueller ENTERED: 12/16/17 15:12 SP TYPE: Gastric Bx OTHR DR: Dr. Ke Allan MD Tissues: A - Gastric mucous membrane B - Esophageal mucous membrane C - Transverse colon Procedures: Special Stain Group II Surgery Specimen Level IV Alcian Blue/PAS (control) HEADER OPERATION: Colonoscopy, EGD ([facility] [place]) PRE-OP DIAGNOSIS: Positive Cologuard test TISSUE SUBMITTED: A - Biopsy gastric antrum, B - Biopsy distal esophageal, C - Polyp proximal transverse MICROSCOPIC DIAGNOSIS A. Gastric antrum, biopsy: The specimen did not survive processing. See comment. B. Distal esophagus, biopsy: Fragments of gastroesophageal mucosa with chronic inflammation and reactive epithelial changes. Intestinal metaplasia (goblet cell metaplasia) is not identified. See comment. C. Proximal transverse colon polyp, biopsy: Fragments of hyperplastic polyp. Fragments of fecal material. SJ:rg 12/19/17 COMMENT B. Alcian blue/PAS stain with matched control is used in the evaluation of the specimen. This case has been reviewed in consultation with Dr. Kumar who concurs with the above diagnosis. MICROSCOPIC DESCRIPTION Slides are reviewed. GROSS DESCRIPTION A - Received in fixative is one container labeled with the patient's name and designated gastric antrum biopsy. The specimen consists of two irregular fragments of light morgan mucoid to soft tissue that in aggregate measure 0.4 x 0.2 x 0.1 cm. The specimen is totally submitted in one cassette. B - Received in fixative is one container labeled with the patient's name and designated biopsy distal esophagus. The specimen consists of multiple irregular fragments of light morgan soft tissue that in aggregate measure 0.5 x 0.3 x 0.1 cm. The specimen is totally submitted in one cassette. C - Received in fixative is one container labeled with the patient's name and designated polyp proximal transverse. The specimen consists of multiple irregular fragments of morgan-pink soft tissue mixed with fecal material that in aggregate measure 1 x 0.3 x 0.1 cm. The specimen is totally submitted in one cassette. / VICTORINO:nery 12/16/17 TC:1 CPT: 82430 x3
--- NOTE | 2017-12-16 06:00 | PCM.HP.STD ---
Problem List (1) Positive colorectal cancer screening using Cologuard test Status: Acute History of Present Illness Date of Admission: 12/16/17 The patient is a 72 year old F who was referred to the office because her cold guard testing was positive. Mild anemia with a hemoglobin 11.9 and hematocrit of 36.5. She does have lupus and an elevated CHRALEE. Long-term cigarette smoker without interested in ceasing. No previous colonoscopy. Recent history of acute kidney injury and vocal cord dysfunction Past Medical History Past Medical History (Chronic Problems): Chronic Problems (Last Reviewed 10/17/17 @ 15:47 by Mely Ortega) Hypertension (Chronic) Medical History: Medical History (Last Reviewed 10/17/17 @ 15:47 by Mely Ortega) Systemic lupus (Acute) M32.9 Positive colorectal cancer screening using Cologuard test (Acute) R19.5 Hx of hysterectomy (Acute) Z90.710 Hypertension (Chronic) I10 Allergies PAPER TAPE Adverse Reaction (Uncoded 12/13/17 11:33) Rash Home Medications: Ambulatory Orders Medication Instructions Recorded Estradiol [Vivelle-Dot, Estraderm] 0.1 mg TRANSDERM. QWEEK 03/13/17 amlodipine 5 mg tablet 10 mg PO DAILY tab 10/17/17 ferrous sulfate 325 mg (65 mg 325 mg PO QDAY tab 10/17/17 iron) tablet hydroxychloroquine 200 mg tablet 300 mg PO QDAY tab 10/17/17 peg 3350-electrolytes 236 4,000 ml PO ONCE #4000 ml 11/02/17 gram-22.74 gram-6.74 gram-5.86 gram solution Surgical History: Surgical History (Last Reviewed 10/17/17 @ 15:47 by Mely Ortega) History of bunionectomy of both great toes (Acute) Z98.890 Surgical History: hysterectomy - BSO Smoking Status: Current every day smoker Tobacco Use: Cigarettes - *Family History Maternal Family History: Family History (Last Reviewed 10/17/17 @ 15:47 by Mely Ortega) Father Arthritis Hypertension Mother Hypertension History Items: Hypertension Paternal Family History: Family History (Last Reviewed 10/17/17 @ 15:47 by Mely Ortega) Father Arthritis Hypertension Mother Hypertension History Items: Hypertension Sibling Family History: Family History (Last Reviewed 10/17/17 @ 15:47 by Mely Ortega) Father Arthritis Hypertension Mother Hypertension History Items: Hypertension - twin sister, older sister, brother Review of Systems Constitutional: Denies: Anorexia HEENT: Denies: Difficulty Hearing Cardiovascular: Denies: Chest Pain Respiratory: Reports: Cough Gastrointestinal: Denies: Abdominal Pain Skin: Denies: Jaundice VTE Information - Inpt Only VTE Present on Admission: No - Physical Exam General: Alert, Oriented x3, Cooperative, No apparent distress HEENT: Atraumatic Oral: Moist Mucosa Lungs: Clear to auscultation Cardiovascular: Regular rate, Regular Rhythm Abdomen: Bowel Sounds Present, Soft, Non Tender Extremities: No Calf Tenderness Skin: No rashes Assessment/Plan All Active Problems (Last Reviewed 10/17/17 @ 15:47 by Mely Ortega) Systemic lupus (Acute) Positive colorectal cancer screening using Cologuard test (Acute) Hx of hysterectomy (Acute) History of bunionectomy of both great toes (Acute) Pyelonephritis (Acute) PEPE (acute kidney injury) (Acute) Hyponatremia (Acute) Because of the vocal cord dysfunction and the anemia in the colon card test positivity I am recommending the patient a esophagogastroduodenoscopy with possible biopsy and colonoscopy with possible biopsy or polypectomy is indicated. She is aware of the technique, benefits, risks, alternatives. She has had an opportunity to ask and have questions answered. We will proceed as noted. I very much appreciate the kind opportunity of assisting with her surgical care. Kevin Tyson M.D., F.A.C.S.
[2017-12-16 08:25] VITALS: BP 141/67; PULSE 82; RESP 14; TEMP 36.9; O2SAT 100; BMI 28.9
[2017-12-16 10:03] VITALS: BP 116/93; BP 141/67; PULSE 78; RESP 16; TEMP 36.2; O2SAT 100
--- NOTE | 2017-12-16 10:03 | OP.ENDO_ITS ---
Patient Name: Jade Foster Procedure Date: 12/16/2017 9:21 AM Date of : 1945 Age: 72 Procedure: Upper GI endoscopy Indications: Iron deficiency anemia Providers: Kevin Tyson MD Referring MD: Kevin Tyson MD Medicines: See the Anesthesia note for documentation of the administered medications Complications: No immediate complications. Procedure: Pre-Anesthesia Assessment: - Prior to the procedure, a History and Physical was performed, and patient medications and allergies were reviewed. The patient's tolerance of previous anesthesia was also reviewed. The risks and benefits of the procedure and the sedation options and risks were discussed with the patient. All questions were answered, and informed consent was obtained. Prior Anticoagulants: The patient has taken no previous anticoagulant or antiplatelet agents. ASA Grade Assessment: II - A patient with mild systemic disease. After reviewing the risks and benefits, the patient was deemed in satisfactory condition to undergo the procedure. After obtaining informed consent, the endoscope was passed under direct vision. Throughout the procedure, the patient's blood pressure, pulse, and oxygen saturations were monitored continuously. The gastroscope was introduced through the mouth, and advanced to the second part of duodenum. The upper GI endoscopy was accomplished without difficulty. The patient tolerated the procedure well. Scope In: 9:29:51 AM Scope Out: 9:34:30 AM Total Procedure Duration Time 0 hours 4 minutes 39 seconds Findings: LA Grade A (one or more mucosal breaks less than 5 mm, not extending between tops of 2 mucosal folds) esophagitis with no bleeding was found 37 cm from the incisors. Biopsies were taken with a cold forceps for histology. A small hiatal hernia was present. Diffuse mildly erythematous mucosa without bleeding was found in the gastric antrum. Biopsies were taken with a cold forceps for histology. The examined duodenum was normal. Impression: - LA Grade A reflux esophagitis. Biopsied. - Small hiatal hernia. - Erythematous mucosa in the antrum. Biopsied. - Normal examined duodenum. Recommendation: - Discharge patient to home (ambulatory). - Resume previous diet. - Use Prilosec (omeprazole) 20 mg PO daily. - Continue present medications. Procedure Code(s): --- Professional --- 77406, Esophagogastroduodenoscopy, flexible, transoral; with biopsy, single or multiple Diagnosis Code(s): --- Professional --- K21.0, Gastro-esophageal reflux disease with esophagitis K44.9, Diaphragmatic hernia without obstruction or gangrene K31.89, Other diseases of stomach and duodenum D50.9, Iron deficiency anemia, unspecified CPT copyright 2017 [employer]. All rights reserved. The codes documented in this report are preliminary and upon fpga engineer review may be revised to meet current compliance requirements. Kevin Tyson MD 12/16/2017 10:03:32 AM This report has been signed electronically. Number of Addenda: 0 Note Initiated On: 12/16/2017 9:21 AM
--- NOTE | 2017-12-16 10:07 | OP.ENDO_ITS ---
Patient Name: Jade Foster Procedure Date: 12/16/2017 9:36 AM Date of : 1945 Age: 72 Procedure: Colonoscopy Indications: Positive Cologuard test Providers: Kevin Tyson MD Referring MD: Kevin Tyson MD Medicines: See the Anesthesia note for documentation of the administered medications Patient Profile: Last Colonoscopy: none. The patient's first colonoscopy is today. Complications: No immediate complications. Procedure: Pre-Anesthesia Assessment: - Prior to the procedure, a History and Physical was performed, and patient medications and allergies were reviewed. The patient's tolerance of previous anesthesia was also reviewed. The risks and benefits of the procedure and the sedation options and risks were discussed with the patient. All questions were answered, and informed consent was obtained. Prior Anticoagulants: The patient has taken no previous anticoagulant or antiplatelet agents. ASA Grade Assessment: II - A patient with mild systemic disease. After reviewing the risks and benefits, the patient was deemed in satisfactory condition to undergo the procedure. After I obtained informed consent, the scope was passed under direct vision. Throughout the procedure, the patient's blood pressure, pulse, and oxygen saturations were monitored continuously. The colonoscope was introduced through the anus and advanced to the cecum, identified by appendiceal orifice and ileocecal valve. The ileocecal valve was photographed. Scope In: 9:38:21 AM Scope Withdrawal Time 0 hours 12 minutes 12 seconds Scope Out: 9:56:18 AM Total Procedure Duration Time 0 hours 17 minutes 57 seconds Findings: Hemorrhoids were found on perianal exam. Multiple diverticula were found in the sigmoid colon and descending colon. A 10 mm polyp was found in the proximal transverse colon. The polyp was sessile. The polyp was removed with a hot snare. The polyp was removed with a saline injection-lift technique using a hot snare. Resection and retrieval were complete. Impression: - Hemorrhoids found on perianal exam. - Diverticulosis in the sigmoid colon and in the descending colon. - One 10 mm polyp in the proximal transverse colon, removed with a hot snare and removed using injection-lift and a hot snare. Resected and retrieved. Recommendation: - Telephone my office for pathology results in 1 week. - Discharge patient to home. - Resume previous diet. - Repeat colonoscopy in 3 years for surveillance based on pathology results. - Continue present medications. Procedure Code(s): --- Professional --- 34318, Colonoscopy, flexible; with removal of tumor(s), polyp(s), or other lesion(s) by snare technique 04852, Colonoscopy, flexible; with directed submucosal injection(s), any substance Diagnosis Code(s): --- Professional --- K64.9, Unspecified hemorrhoids D12.3, Benign neoplasm of transverse colon (hepatic flexure or splenic flexure) R19.5, Other fecal abnormalities K57.30, Diverticulosis of large intestine without perforation or abscess without bleeding CPT copyright 2017 [employer]. All rights reserved. The codes documented in this report are preliminary and upon solution maker review may be revised to meet current compliance requirements. Kevin Tyson MD 12/16/2017 10:07:14 AM This report has been signed electronically. Number of Addenda: 0 Note Initiated On: 12/16/2017 9:36 AM
[2017-12-16 10:08] VITALS: BP 126/73; BP 141/67; PULSE 67; RESP 16; O2SAT 100
[2017-12-16 10:13] VITALS: BP 122/59; BP 141/67; PULSE 71; RESP 16; O2SAT 100
[2017-12-16 10:18] VITALS: BP 112/58; BP 141/67; PULSE 70; RESP 16; TEMP 36.5; O2SAT 100
[2017-12-16 10:44] VITALS: BP 141/67
== END 2017-12-16 10:45 | disposition home or self-care (01) ==
LOC: EN 08:06 → AC 08:07
PROVIDERS: Family Provider Family Medicine; PCP Family Medicine; Referring Provider Surgery; Visit Provider Surgery
PROC: 0DJD8ZZ Inspection of Lower Intestinal Tract, Via Natural or Artificial Opening Endoscopic (ICD-10-PCS; CPT 45378; principal; 2017-12-16 09:10)
DX: K63.5 Polyp of colon (principal); K64.9 Unspecified hemorrhoids; K57.30 Diverticulosis of large intestine without perforation or abscess without bleeding; K21.0 Gastro-esophageal reflux disease with esophagitis; K44.9 Diaphragmatic hernia without obstruction or gangrene; K31.89 Other diseases of stomach and duodenum; D50.9 Iron deficiency anemia, unspecified; J38.3 Other diseases of vocal cords; I10 Essential (primary) hypertension; N28.9 Disorder of kidney and ureter, unspecified; M32.9 Systemic lupus erythematosus, unspecified; Z78.0 Asymptomatic menopausal state; Z87.448 Personal history of other diseases of urinary system; Z79.899 Other long term (current) drug therapy; F17.210 Nicotine dependence, cigarettes, uncomplicated
CPT/HCPCS: 45381; 45385; 43239; 88305; 88313; J7120; A4216

== ENCOUNTER → 2018-01-04 12:13 | Outpatient (CLI) | payer MEDICARE, OTHER, SELFPAY ==
[2018-01-04 13:39] LABS: Protein, Urine (Random) 12.7 mg/dL (<11.9); Protein:Creat Ratio 223 mg/g CRE (0-200)
[2018-01-04 13:50] LABS: Albumin, Serum 3.4 g/dL (3.2-5.0); BUN 23 mg/dL (7-18); BUN/Creat Ratio 21.9 RATIO (10-20); Calcium,Total 8.4 mg/dL (8.5-10.1); Chloride 107 mmol/L (98-107); Creatinine, Serum 1.05 mg/dL (0.55-1.02); EST Glomerular Filtration Rate 55 mL/min (>60); Est Glom Filt Rate - Afr Amer 67 mL/min (>60); Glucose 98 mg/dL (74-106); Phosphorus 3.1 mg/dL (2.5-4.9); Potassium 3.8 mmol/L (3.5-5.1); Sodium Level 140 mmol/L (136-145)
[2018-01-04 14:30] LABS: Absolute Lymphocyte Count 1.47 X10^3/ul (0.83-4.51); Absolute Neutrophil Count 5.2 X10^3/uL (2.0-7.7); Basophil# 0.03 X10^3/uL; Basophil% 0.4 % (0-1); Eosinophil# 0.27 X10^3/uL; Eosinophils% 3.6 % (0-5); Hematocrit 39.7 % (37-47); Hemoglobin 12.5 g/dl (12.0-15.0); Lymphocyte # 1.47 X10^3/ul (4.0); Lymphocyte % 19.6 % (19-41); Mean Corp Hgb Conc 31.5 g/gl (32-36); Mean Corpuscular Hgb 28.8 pg (27.0-32.0); Mean Corpuscular Volume 91.5 fL (81-99); Mean Platelet Vol. 9.9 fl (6.2-12.0); Monocyte% 6.7 % (0-10); Neutrophil % 69.4 % (47-70); Platelet Count 273 K/mm3 (150-450); RBC Distribution Width CV 13.8 % (11.6-14.6); RBC Distribution Width SD 45.9 fl (35.1-43.9); Red Blood Count 4.34 M/mm3 (4.2-5.4); White Blood Count 7.5 K/mm3 (4.4-11.0)
[2018-01-04 14:34] LABS: POSITIVE COUNT NO; POSITIVE DIFFERENTIAL NO; POSITIVE MORPHOLOGY NO
[2018-01-04 14:37] LABS: AST(SGOT) 19 U/L (15-37); Alanine Aminotransfer ALT/SGPT 35 U/L (13-56); Albumin, Serum 3.8 g/dL (3.2-5.0); Alkaline Phosphatase 109 U/L (45-117); Anion Gap 7 (5-15); BUN 23 mg/dL (7-18); BUN/Creat Ratio 20.5 RATIO (10-20); Calcium,Total 8.6 mg/dL (8.5-10.1); Chloride 109 mmol/L (98-107); Creatinine, Serum 1.12 mg/dL (0.55-1.02); EST Glomerular Filtration Rate 51 mL/min (>60); Est Glom Filt Rate - Afr Amer 62 mL/min (>60); Globulin 3.7 g/dL (2.2-4.2); Glucose 96 mg/dL (74-106); Potassium 4.1 mmol/L (3.5-5.1); Protein, Total 7.5 g/dL (6.4-8.2); Sodium Level 142 mmol/L (136-145)
== END ==
PROVIDERS: Family Provider Family Medicine; PCP Family Medicine; Referring Provider Internal Medicine Nephrology; Visit Provider Internal Medicine Nephrology
DX: M06.4 Inflammatory polyarthropathy (principal); M35.00 Sjogren syndrome, unspecified; I12.9 Hypertensive chronic kidney disease with stage 1 through stage 4 chronic kidney disease, or unspecified chronic kidney disease; N18.3 Chronic kidney disease, stage 3 (moderate); M32.9 Systemic lupus erythematosus, unspecified
CPT/HCPCS: 36415; 80053; 80069; 82570; 84156; 85025

== ENCOUNTER 2018-01-14 19:36 | Emergency (ER) | payer MEDICARE, OTHER, SELFPAY ==
[2018-01-14 19:37] VITALS: BP 124/86; PULSE 77; RESP 18; TEMP 35.9; O2SAT 100; BMI 26.4
[2018-01-14 20:04] VITALS: BP 141/73; PULSE 74; RESP 18; O2SAT 100
--- NOTE | 2018-01-14 20:19 | EKG12_ITS ---
Test Reason : ABD PAIN Blood Pressure : / mmHG Vent. Rate : 077 BPM Atrial Rate : 077 BPM P-R Int : 152 ms QRS Dur : 084 ms QT Int : 404 ms P-R-T Axes : 045 008 036 degrees QTc Int : 457 ms Normal sinus rhythm Normal ECG Confirmed by RAMSES VIEYRA, ROBERTA ([id number]), writer editor JESUS PRINGLE ([id number]) on 01/18/2018 12:52:18 PM Referred By: Nallely Valenzuela Confirmed By:ROBERTA PEARCE MD
--- NOTE | 2018-01-14 20:21 | RAD_ITS ---
STUDY: X-RAY CHEST REASON FOR EXAM: Female, 72 years old. Right upper abdominal pain. Low chest pain radiating into the back. TECHNIQUE: Portable chest. COMPARISON: 03/13/2017. FINDINGS: There is no pleural effusion. Calcified granulomas are noted in the right lower lobe. Calcified mediastinal nodes are present. Normal size heart. Normal visualized pulmonary arteries. Normal visualized aortic arch and descending thoracic aorta. Normal visualized thoracic spine. Normal visualized ribs, clavicles, and shoulders. There is no demonstrated abnormality of the visualized soft tissue structures of the upper abdomen. RAD/Chest 1 View (Portable) IMPRESSION: 1. No acute process. 2. Old granulomatous disease. Electronically Signed: Hanna Katz MD at 21:20 EST Tel , Service support ,
--- NOTE | 2018-01-14 20:22 | ED.DCSUM_ITS ---
- ER Visit Summary Date of Service: 01/14/18 Chief Complaint: Epigastric discomfort. History of Present Illness: The patient is a 72 F states symptoms epigastric discomfort since 3:30 PM while climbing a ladder and painting. She been painting throughout the day. Stop since. Pain radiates to the mid abdomen. No current nausea or vomiting. No diarrhea. Normal bowel movement today. Last meal was this morning. Denies previous similar symptoms in the past history of hypertension and lupus and tobacco. EGD and colonoscopy 3 weeks ago from screening by Dr. Tyson. States had a polypectomy. No urinary symptoms. Physical Examination: General: Alert and oriented ?3, uncomfortable, standing HEENT: Normocephalic, atraumatic. Moist mucosa membranes Neck: supple, nontender. Cardiovascular: Regular rate and rhythm, no murmurs Respiratory: Normal breath sounds, symmetric, no distress Abdomen: Soft, tender epigastric and mid abdomen. Negative Man's or McBurney's. Extremities: Nontender, no edema, pulses intact ?4 Neuro: no focal neurological deficits. Test Results: EKG sinus rate of [address] or T wave changes. Chest x-ray negative. White count 11.2. Hemoccult 13.6. Creatinine 1.24. Lipase 97. Liver enzymes normal. Troponin 0 0.015. Emergency Department Course and Treatment: Patient abdominal discomfort. Nonsurgical abdomen. Epigastric mid abdomen. Abdominal labs normal. Cardiac workup was negative. Treated fluids morphine Zofran, reevaluation improving symptoms states only mild epigastric symptoms attempted GI cocktail states did not change. She is Osiel on Nexium. She has no right upper quadrant pain. Discussed with patient unclear etiology at this time. However symptoms improved. She will monitor symptoms, signs and symptoms discussed to return otherwise follow-up with her PCP. All questions were answered. Treatment Plan: [] Disposition: Discharge Impression: Nonspecific abdominal pain This note was generated with [employer] dictation software. It may contain incorrect words, spelling, and punctuation that were not noted in review of the chart prior to signing ED Disposition - Plan for ED Patient: Disposition: Home or Assisted Living Chief Complaint: Abd Pain Diagnosis: Nonspecific abdominal pain Instructions: ED Abdominal Pain Unkn Cause Referrals: Steve Allan MD [Primary Care Provider] - 3-5 Days
[2018-01-14] MEDS: Ondansetron 4 MG/2 ML Vial IV (20:31)
[2018-01-14] MEDS: 0.9% Normal Saline 1,000 ML 150 ML IV (20:31)
[2018-01-14] MEDS: Morphine 4 MG/ML Syringe IV (20:32)
[2018-01-14 20:44] LABS: Absolute Lymphocyte Count 1.71 X10^3/ul (0.83-4.51); Absolute Neutrophil Count 8.6 X10^3/uL (2.0-7.7); Basophil# 0.03 X10^3/uL; Basophil% 0.3 % (0-1); Eosinophil# 0.36 X10^3/uL; Eosinophils% 3.2 % (0-5); Hematocrit 42.1 % (37-47); Hemoglobin 13.6 g/dl (12.0-15.0); Lymphocyte # 1.71 X10^3/ul (4.0); Lymphocyte % 15.3 % (19-41); Mean Corp Hgb Conc 32.3 g/gl (32-36); Mean Corpuscular Hgb 29.1 pg (27.0-32.0); Mean Corpuscular Volume 90.1 fL (81-99); Mean Platelet Vol. 9.9 fl (6.2-12.0); Monocyte# 0.44 X10^3/uL; Monocyte% 3.9 % (0-10); Neutrophil # 8.62 X10^3/uL (2.7-7.7); Neutrophil % 77.1 % (47-70); POSITIVE COUNT NO; POSITIVE DIFFERENTIAL NO; POSITIVE MORPHOLOGY NO; Platelet Count 289 K/mm3 (150-450); RBC Distribution Width CV 13.9 % (11.6-14.6); RBC Distribution Width SD 45.6 fl (35.1-43.9); Red Blood Count 4.67 M/mm3 (4.2-5.4); White Blood Count 11.2 K/mm3 (4.4-11.0)
[2018-01-14 20:58] LABS: AST(SGOT) 18 U/L (15-37); Alanine Aminotransfer ALT/SGPT 34 U/L (13-56); Albumin, Serum 4.2 g/dL (3.2-5.0); Alkaline Phosphatase 104 U/L (45-117); Anion Gap 12 (5-15); BUN 23 mg/dL (7-18); BUN/Creat Ratio 18.5 RATIO (10-20); Bilirubin, Direct 0.06 mg/dL (0.00-0.30); Calcium,Total 9.3 mg/dL (8.5-10.1); Chloride 105 mmol/L (98-107); Creatinine, Serum 1.24 mg/dL (0.55-1.02); EST Glomerular Filtration Rate 45 mL/min (>60); Est Glom Filt Rate - Afr Amer 55 mL/min (>60); Estimated Creatinine Clearance 33.39 ml/min; Globulin 3.8 g/dL (2.2-4.2); Glucose 116 mg/dL (74-106); Lipase 97 U/L (73-393); Potassium 4.1 mmol/L (3.5-5.1); Sodium Level 140 mmol/L (136-145)
[2018-01-14 22:04] VITALS: BP 126/71; PULSE 74; RESP 18; O2SAT 96
[2018-01-14] MEDS: Mag Hydrox/Al Hydrox/Simeth 30 ML UDC PO (22:32)
[2018-01-14 22:56] VITALS: BP 120/82; PULSE 79; RESP 16; O2SAT 95
== END 2018-01-14 22:57 | disposition home or self-care (01) ==
PROVIDERS: Emergency Provider Emergency Medicine; Family Provider Family Medicine; PCP Family Medicine
DX: R10.13 Epigastric pain (principal); I10 Essential (primary) hypertension; Z79.899 Other long term (current) drug therapy; Z72.0 Tobacco use
CPT/HCPCS: 71045; 80048; 80076; 83690; 84484; 85025; 93005; 96361; 96374; 96375; 99284; J7030; J2405

== ENCOUNTER → 2018-06-26 | Outpatient (CLI) | payer MEDICARE, OTHER, SELFPAY ==
[2018-06-26 12:28] LABS: Absolute Neutrophil Count 3.5 X10^3/uL (2.0-7.7); Basophil# 0.04 X10^3/uL; Basophil% 0.8 % (0-1); Eosinophil# 0.21 X10^3/uL; Hematocrit 39.7 % (37-47); Hemoglobin 12.8 g/dl (12.0-15.0); Lymphocyte % 21.2 % (19-41); Mean Corp Hgb Conc 32.2 g/gl (32-36); Mean Corpuscular Hgb 29.1 pg (27.0-32.0); Mean Corpuscular Volume 90.2 fL (81-99); Mean Platelet Vol. 9.9 fl (6.2-12.0); Monocyte# 0.33 X10^3/uL; Monocyte% 6.4 % (0-10); Neutrophil % 67.4 % (47-70); Platelet Count 259 K/mm3 (150-450); RBC Distribution Width CV 13.9 % (11.6-14.6); RBC Distribution Width SD 45.5 fl (35.1-43.9); White Blood Count 5.2 K/mm3 (4.4-11.0)
[2018-06-26 12:32] LABS: POSITIVE COUNT NO; POSITIVE DIFFERENTIAL NO; POSITIVE MORPHOLOGY NO
[2018-06-26 12:45] LABS: Vitamin D,25 Hydroxy 11.5 ng/mL (29.95-100.01)
[2018-06-26 12:54] LABS: ALB/GLOB Ratio 1.1 RATIO (0.9-2.4); AST(SGOT) 18 U/L (15-37); Alanine Aminotransfer ALT/SGPT 30 U/L (13-56); Albumin, Serum 3.8 g/dL (3.2-5.0); Alkaline Phosphatase 102 U/L (45-117); Anion Gap 3 (5-15); BUN 22 mg/dL (7-18); BUN/Creat Ratio 25.3 RATIO (10-20); Calcium,Total 8.5 mg/dL (8.5-10.1); Chloride 108 mmol/L (98-107); Creatinine, Serum 0.87 mg/dL (0.55-1.02); EST Glomerular Filtration Rate 68 mL/min (>60); Est Glom Filt Rate - Afr Amer 83 mL/min (>60); Globulin 3.5 g/dL (2.2-4.2); Glucose 96 mg/dL (74-106); Potassium 4.1 mmol/L (3.5-5.1); Protein, Total 7.3 g/dL (6.4-8.2); Sodium Level 137 mmol/L (136-145)
== END | disposition home or self-care (01) ==
LOC: MTLAB 09:18
PROVIDERS: Family Provider Family Medicine; PCP Family Medicine; Referring Provider Internal Medicine Rheumatology; Visit Provider Internal Medicine Rheumatology
DX: M06.4 Inflammatory polyarthropathy (principal); M35.00 Sjogren syndrome, unspecified; K21.9 Gastro-esophageal reflux disease without esophagitis; I10 Essential (primary) hypertension; N28.9 Disorder of kidney and ureter, unspecified
CPT/HCPCS: 36415; 80053; 82306; 85025

== ENCOUNTER → 2018-09-26 | Outpatient (CLI) | payer MEDICARE, OTHER, SELFPAY ==
[2018-09-26 15:39] LABS: Absolute Lymphocyte Count 1.34 X10^3/uL (0.83-4.51); Absolute Neutrophil Count 4.5 X10^3/uL (2.0-7.7); Basophil# 0.04 X10^3/uL; Basophil% 0.6 % (0-1); Eosinophil# 0.17 X10^3/uL; Eosinophils% 2.6 % (0-5); Hematocrit 38.9 % (37-47); Hemoglobin 12.8 g/dL (12.0-15.0); Lymphocyte # 1.34 X10^3/ul (4.0); Lymphocyte % 20.6 % (19-41); Mean Corp Hgb Conc 32.9 g/dL (32-36); Mean Corpuscular Hgb 30.5 pg (27.0-32.0); Mean Corpuscular Volume 92.8 fL (81-99); Mean Platelet Vol. 9.8 fl (6.2-12.0); Monocyte# 0.37 X10^3/uL; Monocyte% 5.7 % (0-10); NRBC Flagged by Analyzer 0 % (0-5); Neutrophil # 4.54 X10^3/uL (2.7-7.7); Neutrophil % 69.9 % (47-70); Platelet Count 254 K/mm3 (150-450); RBC Distribution Width CV 13.7 % (11.6-14.6); RBC Distribution Width SD 46.7 fl (35.1-43.9); Red Blood Count 4.19 M/mm3 (4.2-5.4); White Blood Count 6.5 K/mm3 (4.4-11.0)
[2018-09-26 16:19] LABS: AST(SGOT) 17 U/L (15-37); Alanine Aminotransfer ALT/SGPT 34 U/L (13-56); Albumin, Serum 3.5 g/dL (3.2-5.0); Alkaline Phosphatase 88 U/L (45-117); Anion Gap 8 (5-15); BUN 21 mg/dL (7-18); BUN/Creat Ratio 20.2 RATIO (10-20); Calcium,Total 8.8 mg/dL (8.5-10.1); Chloride 108 mmol/L (98-107); Creatinine, Serum 1.04 mg/dL (0.55-1.02); EST Glomerular Filtration Rate 56 mL/min (>60); Est Glom Filt Rate - Afr Amer 67 mL/min (>60); Globulin 3.4 g/dL (2.2-4.2); Glucose 134 mg/dL (74-106); Potassium 3.9 mmol/L (3.5-5.1); Protein, Total 6.9 g/dL (6.4-8.2); Sodium Level 143 mmol/L (136-145)
== END | disposition home or self-care (01) ==
LOC: LAB 13:40
PROVIDERS: Family Provider Family Medicine; PCP Family Medicine; Referring Provider Internal Medicine Rheumatology; Visit Provider Internal Medicine Rheumatology
DX: M06.4 Inflammatory polyarthropathy (principal); M35.00 Sjogren syndrome, unspecified; K21.9 Gastro-esophageal reflux disease without esophagitis; I10 Essential (primary) hypertension
CPT/HCPCS: 36415; 80053; 85025

== ENCOUNTER → 2019-04-02 11:45 | Outpatient (CLI) | payer MEDICARE, OTHER, SELFPAY ==
[2019-04-02 13:15] LABS: Hematocrit 42.7 % (37-47); Hemoglobin 13.7 g/dL (12.0-15.0); Mean Corp Hgb Conc 32.1 g/dL (32-36); Mean Corpuscular Hgb 29.5 pg (27.0-32.0); Mean Platelet Vol. 9.8 fl (6.2-12.0); Platelet Count 263 K/mm3 (150-450); RBC Distribution Width CV 13.3 % (11.6-14.6); RBC Distribution Width SD 45.4 fl (35.1-43.9); Red Blood Count 4.64 M/mm3 (4.2-5.4); White Blood Count 6.5 K/mm3 (4.4-11.0)
[2019-04-02 13:42] LABS: Albumin, Serum 3.9 g/dL (3.2-5.0); BUN 23 mg/dL (7-18); BUN/Creat Ratio 22.3 RATIO (10-20); Calcium,Total 9.5 mg/dL (8.5-10.1); Chloride 107 mmol/L (98-107); Creatinine, Serum 1.03 mg/dL (0.55-1.02); EST Glomerular Filtration Rate 56 mL/min (>60); Est Glom Filt Rate - Afr Amer 68 mL/min (>60); Glucose 101 mg/dL (74-106); Phosphorus 3.6 mg/dL (2.5-4.9); Potassium 3.9 mmol/L (3.5-5.1); Sodium Level 140 mmol/L (136-145)
[2019-04-02 14:06] LABS: Protein, Urine (Random) 9.2 mg/dL (<11.9); Protein:Creat Ratio 196 mg/g CRE (0-200)
== END ==
PROVIDERS: Family Provider Family Medicine; PCP Family Medicine; Referring Provider Internal Medicine Nephrology; Visit Provider Internal Medicine Nephrology
DX: N18.3 Chronic kidney disease, stage 3 (moderate) (principal); M32.9 Systemic lupus erythematosus, unspecified
CPT/HCPCS: 36415; 80069; 82570; 84156; 85027

== ENCOUNTER → 2019-10-16 07:17 | Outpatient (CLI) | payer MEDICARE, OTHER, SELFPAY ==
--- NOTE | 2019-10-16 07:19 | CT_ITS ---
STUDY: LOW DOSE CT LUNG CANCER SCREENING REASON FOR EXAM: Female, 74 years old. Long history of smoking. Screening for lung cancer. RADIATION DOSAGE (If Supplied By Facility): CTDIvol = ( 2.55 ) mGy, DLP = ( 76.91 ) mGycm TECHNIQUE: No contrast was administered. Low dose technique was utilized (average mAS-38 and kVp 120). 1.25 mm axial source images with a slice interval of 1.25-mm were reconstructed in lung windows. 2.5 mm axial source images with a slice interval of 2.5-mm were reconstructed in lung windows. 5.0 mm axial source images with a slice interval of 5.0-mm were reconstructed in soft tissue windows. Nodule measured using lung windows on PACS and/or independent workstation with automated measurement of minimum and maximum diameter. Nodule measurement reported as average diameter rounded to the nearest whole number. Growth is defined as an increase ins size of greater than 1.5 mm. COMPARISON: None. NODULES: The lungs are clear and expanded. Calcified granulomas are seen in both lungs, the largest measures 7 mm is in the right lower lobe. There is no demonstrated pleural abnormality. Normal heart and pericardium. Normal mediastinum. Normal hilar regions. Normal unenhanced pulmonary arteries. Normal aorta arch and descending thoracic aorta. Normal osseous structures. There is no demonstrated abnormality of the visualized upper abdomen. CT/Low Dose CT Lung Screening IMPRESSION: Lung-RADS category 2. Benign findings. Recommendation: Routine screening CT scan in one year. IMPORTANT NOTES FOR USE: ACR Lung-RADS Version 1.0 Assessment Categories Release Date: June 25, 2013 Category: Coded 0-4 bases on nodule(s) with highest degree of suspicion. Negative screen is defined as categories 1 and 2; a positive screen is defined as categories 3 and 4. Category 3 and 4A nodules that are unchanged on interval CT should be coded as category 2, and individuals returned to screening in 12 months. Category 4X: Category 3 or 4 nodules with additional imaging findings that increase the suspicion of lung cancer, such as spiculation, GGN that doubles in size in 1 year, enlarged lymph notes, etc. Category Modifiers: S (significant finding unrelated to lung cancer) and C (prior history of treated lung cancer) may be added to the 0-4 Lung-RADS Electronically Signed: Fly Courtney, at 17:04 EDT Tel , Service support ,
[2019-10-16 08:36] LABS: Anion Gap 2 (5-15); BUN 17 mg/dL (7-18); BUN/Creat Ratio 15.2 RATIO (10-20); Calcium,Total 9.1 mg/dL (8.5-10.1); Chloride 106 mmol/L (98-107); Cholesterol 205 mg/dL (200); Creatinine, Serum 1.12 mg/dL (0.55-1.02); EST Glomerular Filtration Rate 51 mL/min (>60); Est Glom Filt Rate - Afr Amer 62 mL/min (>60); Glucose 102 mg/dL (74-106); High Density Lipoprotein 83 mg/dL; Potassium 3.8 mmol/L (3.5-5.1); Sodium Level 139 mmol/L (136-145); Triglycerides 165 mg/dL; Very Low Density Lipoprotein 33 mg/dL (5-40)
[2019-10-16 09:33] LABS: Vitamin D,25 Hydroxy 33.4 ng/mL
== END ==
PROVIDERS: PCP Family Medicine; Referring Provider Family Medicine; Visit Provider Family Medicine
DX: I12.9 Hypertensive chronic kidney disease with stage 1 through stage 4 chronic kidney disease, or unspecified chronic kidney disease (principal); N18.9 Chronic kidney disease, unspecified; E55.9 Vitamin D deficiency, unspecified; F17.210 Nicotine dependence, cigarettes, uncomplicated
CPT/HCPCS: 36415; 80048; 80061; 82306; G0297

== ENCOUNTER → 2019-11-07 11:16 | Outpatient (CLI) | payer MEDICARE, OTHER, SELFPAY ==
--- NOTE | 2019-11-07 11:18 | BI_ITS ---
MAMMOGRAPHY - BILATERAL SCREENING REASON FOR EXAM: Female, 74 years old. Routine annual screening examination. PERTINENT HISTORY: Non-contributory. TECHNIQUE: Digital bilateral breast mayur (3D mammographic acquisition) in the CC and MLO projections. 2-D mediolateral oblique (MLO) and craniocaudad (CC) views of both breasts were obtained. CAD: Full Field Digital Mammography with Computer Added Detection was performed. COMPARISON: Comparison is made with prior study dated 03/16/2011. FINDINGS: Breast Composition: The breasts are heterogeneously dense, which may obscure small masses. There are no dominant masses or suspicious calcifications. Stable benign appearing bilateral axillary lymph nodes. No other significant abnormalities are identified. There has been no significant change since the prior study. BI/SCREEN MAMM (CAD) W/MAYUR BILAT IMPRESSION: Stable bilateral screening mammogram. Yearly follow-up mammogram recommended. (A) ASSESSMENT CATEGORY: BIRADS Category 2: Benign. A letter regarding these results will be sent to the patient by the facility within 30 days. Approximately 10% of breast cancers are not detected by mammography. A normal mammogram should not delay biopsy of a clinically suspicious abnormality. [id number] Electronically Signed: Neville Schaffer, at 13:13 EDT , Service support ,
--- NOTE | 2019-11-07 11:26 | BD_ITS ---
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 COMPARISON: Comparison is made with prior study dated 03/16/2011. FINDINGS: Lumbar Spine (L1-L4): g/cm2 (1.065) / T-score (-0.8) / Z-score (0.9) Findings are suggestive of normal bone density with a low fracture risk. Left Femur Total: g/cm2 (0.985) / T-score (-0.2) / Z-score (1.4) Left Femoral Neck: g/cm2 (0.892) / T-score (-1.0) / Z-score (0.7) Right Femur Total: g/cm2 (1.008) / T-score (0.0) / Z-score (1.6) Right Femoral Neck: g/cm2 (0.938) / T-score (-0.7) / Z-score (1.1) The T-Scores on the most recent prior examination were: Lumbar Spine (L1-L4): There has been improvement of bone density since the previous examination. Left Femur Total: which represents a worsening of 2.1%. Right Femur Total: which represents a worsening of 3.4%. BD/Dexa Bone Density Study IMPRESSION: The patient is considered normal as outlined below according to World [employer] Organization (WHO) criteria with a low fracture risk. There has been worsening of bone density since the previous examination. Reference Information: The T-score is the number of standard deviations above or below the standard which is normal for young adults at their peak bone mineral density. The World Health Organization (WHO) interprets the T-scores as follows: Above -1 Normal bone density Between -1 and -2.5 Osteopenia Equal to / or below -2.5 Osteoporosis As a practical clinical guideline, osteopenia may be graded as follows: Mild -1 through -1.5 Moderate -1.6 through -2.0 Severe -2.1 through -2.4 The Z-score is the number of standard deviations above or below age-matched controls. A Z-score of less than -1.5 would be considered abnormal. References: 1. NIH Osteoporosis and Related Bone Diseases http://www.osteo.org 2. International Society for Clinical Densitometry http://www.iscd.org 3. National Osteoporosis Foundation http://www.nof.org Electronically Signed: Neville Schaffer, at 15:10 EDT , Service support ,
== END ==
PROVIDERS: PCP Family Medicine; Referring Provider Family Medicine; Visit Provider Family Medicine
DX: Z12.31 Encounter for screening mammogram for malignant neoplasm of breast (principal); Z78.0 Asymptomatic menopausal state; F17.200 Nicotine dependence, unspecified, uncomplicated
CPT/HCPCS: 77063; 77067; 77080

== ENCOUNTER → 2020-05-29 14:36 | Outpatient (CLI) | payer MEDICARE, OTHER, SELFPAY ==
[2020-05-29 17:32] LABS: Hematocrit 43.3 % (37-47); Hemoglobin 13.5 g/dL (12.0-15.0); Mean Corp Hgb Conc 31.2 g/dL (32-36); Mean Corpuscular Hgb 29.3 pg (27.0-32.0); Mean Corpuscular Volume 94.1 fL (81-99); Mean Platelet Vol. 9.7 fl (6.2-12.0); Platelet Count 302 K/mm3 (150-450); RBC Distribution Width CV 14.1 % (11.6-14.6); RBC Distribution Width SD 48.8 fl (35.1-43.9); White Blood Count 7.6 K/mm3 (4.4-11.0)
[2020-05-29 18:40] LABS: Vitamin D,25 Hydroxy 22.7 ng/mL
[2020-05-29 20:29] LABS: Anion Gap 7 (5-15); BUN 21 mg/dL (7-18); BUN/Creat Ratio 20.6 RATIO (10-20); Calcium,Total 9.5 mg/dL (8.5-10.1); Chloride 107 mmol/L (98-107); Creatinine, Serum 1.02 mg/dL (0.55-1.02); EST Glomerular Filtration Rate 57 mL/min (>60); Est Glom Filt Rate - Afr Amer 68 mL/min (>60); Glucose 89 mg/dL (74-106); Sodium Level 140 mmol/L (136-145)
== END ==
PROVIDERS: PCP Family Medicine; Referring Provider Family Medicine; Visit Provider Family Medicine
DX: N18.30 Chronic kidney disease, stage 3 unspecified (principal)
CPT/HCPCS: 36415; 80048; 82306; 85027

== ENCOUNTER → 2020-12-02 11:08 | Outpatient (CLI) | payer MEDICARE, OTHER, SELFPAY ==
--- NOTE | 2020-12-02 11:11 | RAD_ITS ---
STUDY: X-RAY - LUMBOSACRAL SPINE REASON FOR EXAM: Female, 75 years old. PAIN TECHNIQUE: 6 view(s) of the lumbosacral spine were obtained. COMPARISON: None FINDINGS: Normal lumbar lordosis. There is no substantial scoliosis. There is normal alignment of the vertebrae. There is multilevel endplate spondylosis of the lumbar vertebrae. There is multi-level degenerative disc disease with multi-level disc space narrowing. Normal bilateral sacral ala, sacroiliac joints, and visualized sacrum. No pars defect. No evidence of dynamic instability. Normal visualized soft tissue structures. RAD/L/S Spine w Bend Min 6 Vw IMPRESSION: Multilevel spondylosis/disc degenerative disease. No acute fracture, spondylolisthesis or pars defect. No evidence of dynamic instability. Electronically Signed: Maria Dolores Quiroz MD at 0:19 EDT , Service support ,
== END ==
PROVIDERS: PCP Family Medicine; Referring Provider Family Medicine; Visit Provider Family Medicine
DX: M54.40 Lumbago with sciatica, unspecified side (principal)
CPT/HCPCS: 72114

== ENCOUNTER 2021-05-06 13:29 | Outpatient (CLI) | payer MEDICARE, OTHER, SELFPAY ==
--- NOTE | 2021-05-06 13:33 | CT_ITS ---
STUDY: LOW DOSE CT LUNG CANCER SCREENING REASON FOR EXAM: Female, 75 years old . Tobacco use. RADIATION DOSAGE (If Supplied By Facility): CTDIvol = ( 3.02 ) mGy, DLP = ( 104.58 ) mGycm TECHNIQUE: No contrast was administered. Low dose technique was utilized (average mAS-38 and kVp 120). 1.25 mm axial source images with a slice interval of 1.25-mm were reconstructed in lung windows. 2.5 mm axial source images with a slice interval of 2.5-mm were reconstructed in lung windows. 5.0 mm axial source images with a slice interval of 5.0-mm were reconstructed in soft tissue windows. Nodule measured using lung windows on PACS and/or independent workstation with automated measurement of minimum and maximum diameter. Nodule measurement reported as average diameter rounded to the nearest whole number. Growth is defined as an increase ins size of greater than 1.5 mm. COMPARISON: Low dose CT lung screening 10/16/2019. NODULES: Nodule #: 1 Density: Soft tissue Lung location: Left lower lobe: 2.4 cm from pleura Location in series: Series Number: 2 Image: 98 Size - D1 x D2 mm: 3 x 3 mm: 3 mm average diameter Margin: Smooth Shape: Round Calcification: Yes Fat: No Temporal comparison: Stable Nodule #: 2 Density: Solid Lung location: Left upper lobe: 0 point cm from pleura Location in series: Series Number: 2 Image: 120 Size - D1 x D2 mm: 4 x 4 mm: 4 mm average diameter Margin: Smooth Shape: Rounded Calcification: Yes Fat: No Temporal comparison: Stable Nodule #: 3 Density: Solid Lung location: Right lower lobe: 1.9 cm from pleura Location in series: Series Number: 2 Image: 124 Size - D1 x D2 mm: 7 x 6 mm: 7 mm average diameter Margin: Irregular Shape: Rounded Calcification: Yes Fat: No Temporal comparison: Stable Nodule #: 4 Density: Solid Lung location: Right minimal lobe: Pleural-based Location in series: Series Number: 2 Image: 152 Size - D1 x D2 mm: 9 x 6 mm: 8 mm average diameter Margin: Lobulated Shape: Oval Calcification: Yes Fat: No Temporal comparison: Stable Nodule #: 5 Density: Solid Lung location: Right lower lobe: Pleural-based Location in series: Series Number: 2 Image: 155 Size - D1 x D2 mm: 3 x 3 mm: 3 mm average diameter Margin: Smooth Shape: Round Calcification: Yes Fat: No Temporal comparison: Stable Total lung nodules (excluding granulomas): 0 Emphysema: Mild emphysematous changes of the lungs. Endobronchial lesion: None Aorta: Minimal stable atherosclerotic changes without lymphadenopathy. Coronary arteries: Normal Heart: Normal Pulmonary artery: Normal Mediastinal nodes: Stable nonspecific mediastinal lymph nodes Other chest and abdominal findings: Degenerative changes of the thoracic spine. CT/Low Dose CT Lung Screening IMPRESSION: Lung-RADS category 1 - Continue annual screening with LDCT in 12 months. IMPORTANT NOTES FOR USE: ACR Lung-RADS Version 1.1 Assessment Categories Release Date: 2018 Category: Coded 0-4 bases on nodule(s) with highest degree of suspicion. Negative screen is defined as categories 1 and 2; a positive screen is defined as categories 3 and 4. Category 3 and 4A nodules that are unchanged on interval CT should be coded as category 2, and individuals returned to screening in 12 months. Category 4X: Category 3 or 4 nodules with additional imaging findings that increase the suspicion of lung cancer, such as spiculation, GGN that doubles in size in 1 year, enlarged lymph notes, etc. Category Modifiers: S (significant finding unrelated to lung cancer) Electronically Signed: Elpidio Coyne DO at 23:31 EST Reading Location ID and State: [address] [place] [address] Tel [phone], Service support ,
--- NOTE | 2021-05-06 13:49 | BI_ITS ---
MAMMOGRAPHY - BILATERAL SCREENING REASON FOR EXAM: Female, 75 years old. Routine annual screening examination. PERTINENT HISTORY: Non-contributory. TECHNIQUE: Digital bilateral breast mayur (3D mammographic acquisition) in the CC and MLO projections. 2-D mediolateral oblique (MLO) and craniocaudad (CC) views of both breasts were obtained. CAD: Full Field Digital Mammography with Computer Added Detection was performed. COMPARISON: Comparison is made with prior study 11/17/2019 and 03/16/2011. FINDINGS: Breast Composition: The breasts are heterogeneously dense, which may obscure small masses. There are no dominant masses or suspicious calcifications. Stable small benign-appearing bilateral axillary nodes. No other significant abnormalities are identified. There has been no significant change since the prior study. BI/SCRN MAMM (CAD)W/MAYUR BILAT IMPRESSION: Stable bilateral screening mammogram. Yearly follow-up mammogram recommended. (A) ASSESSMENT CATEGORY: BIRADS Category 2: Benign. A letter regarding these results will be sent to the patient by the facility within 30 days. Approximately 10% of breast cancers are not detected by mammography. A normal mammogram should not delay biopsy of a clinically suspicious abnormality. [id number] Electronically Signed: Neville Schaffer MD at 14:59 EST ,
== END 2021-05-06 23:59 | disposition home or self-care (01) ==
PROVIDERS: PCP Family Medicine; Referring Provider Family Medicine; Visit Provider Family Medicine
DX: Z12.31 Encounter for screening mammogram for malignant neoplasm of breast (principal); Z87.891 Personal history of nicotine dependence
CPT/HCPCS: 71271; 77063; 77067

== ENCOUNTER → 2021-07-21 | Outpatient (CLI) | payer MEDICARE, OTHER, SELFPAY ==
[2021-07-21 13:32] LABS: Hemoglobin 13.6 g/dL (12.0-15.0); Mean Corp Hgb Conc 31.6 g/dL (32-36); Mean Corpuscular Hgb 29.1 pg (27.0-32.0); Mean Corpuscular Volume 92.1 fL (81-99); Mean Platelet Vol. 9.3 fl (6.2-12.0); Platelet Count 273 K/mm3 (150-450); RBC Distribution Width CV 14.5 % (11.6-14.6); RBC Distribution Width SD 48.7 fl (35.1-43.9); Red Blood Count 4.67 M/mm3 (4.2-5.4); White Blood Count 7.2 K/mm3 (4.4-11.0)
--- NOTE | 2021-07-21 13:33 | ART_ITS ---
Reason For Study: leg pain Procedure A bilateral lower extremity continuous wave Doppler with analog waveform analysis and ankle brachial indexes. Left Segmental Pressures Left brachial= 144mmHg. Left posterior tibial artery = 173mmHg. Left dorsalis pedis artery = 160mmHg. The left dorsalis pedis waveforms are triphasic. The left posterior tibial artery waveforms are triphasic. Right Segmental Pressures Right brachial= 152mmHg. Right posterior tibial artery = 170mmHg. Right dorsalis pedis artery = 163mmHg. The right dorsalis pedis waveforms are triphasic. The right posterior tibial artery waveforms are triphasic. Indices The right ankle brachial index by the posterior tibial artery is 1.12. The right ankle brachial index by the dorsalis pedis is 1.07. The left ankle brachial index by the posterior tibial artery is 1.14. The left ankle brachial index by the dorsalis pedis is 1.05. VL/Ankle Brachial Index Interpretation Summary Triphasic Doppler waveforms are noted at ankle level bilaterally. Pulse-volume recordings appear satisfactory at ankle level bilaterally. Resting ankle-brachial indices are nor mal bilaterally. There is no evidence of significant arterial occlusive disease in the lower ext remities bilaterally. Ordering Physician: Steve Allan Performed By: Zheng Awad RVT
[2021-07-21 14:12] LABS: AST(SGOT) 17 U/L (15-37); Alanine Aminotransfer ALT/SGPT 32 U/L (13-56); Albumin, Serum 3.8 g/dL (3.2-5.0); Alkaline Phosphatase 98 U/L (45-117); Anion Gap 4 (5-15); BUN 17 mg/dL (7-18); BUN/Creat Ratio 16.2 RATIO (10-20); Chloride 107 mmol/L (98-107); Cholesterol 214 mg/dL (200); Creatinine, Serum 1.05 mg/dL (0.55-1.02); EST Glomerular Filtration Rate 54 mL/min (>60); Est Glom Filt Rate - Afr Amer 66 mL/min (>60); Globulin 3.7 g/dL (2.2-4.2); Glucose 104 mg/dL (74-106); High Density Lipoprotein 85 mg/dL; Potassium 3.8 mmol/L (3.5-5.1); Protein, Total 7.5 g/dL (6.4-8.2); Sodium Level 139 mmol/L (136-145); Triglycerides 116 mg/dL; Very Low Density Lipoprotein 23 mg/dL (5-40)
[2021-07-21 14:13] LABS: Vitamin D,25 Hydroxy 36.9 ng/mL
== END | disposition home or self-care (01) ==
LOC: CVS 13:14
PROVIDERS: PCP Family Medicine; Referring Provider Family Medicine; Visit Provider Family Medicine
DX: M54.40 Lumbago with sciatica, unspecified side (principal); I79.8 Other disorders of arteries, arterioles and capillaries in diseases classified elsewhere; R73.01 Impaired fasting glucose; F17.200 Nicotine dependence, unspecified, uncomplicated; I10 Essential (primary) hypertension; E55.9 Vitamin D deficiency, unspecified; M79.604 Pain in right leg
CPT/HCPCS: 36415; 80053; 80061; 82306; 85027; 93922

== ENCOUNTER → 2021-08-06 | Outpatient (CLI) | payer MEDICARE, OTHER, SELFPAY ==
--- NOTE | 2021-08-06 15:42 | RAD_ITS ---
EXAM: XR LEFT FOOT COMPLETE, 3 OR MORE VIEWS CLINICAL INDICATION: FOOT PAIN Technologist Notes pain to top of foot, Hx bunion surgery in the past TECHNIQUE: Frontal, lateral and oblique views of the left foot. This report was created using [employer] report generation technology. COMPARISON: None. FINDINGS: BONES/JOINTS: Degenerative findings of the first metatarsal phalangeal joint. Evidence for prior bunionectomy changes. There is a calcaneal spur. No acute fracture. No sclerotic or destructive changes observed. SOFT TISSUES: Unremarkable. No soft tissue swelling or gas. No radiopaque foreign body. RAD/Foot min 3 Views IMPRESSION: Degenerative findings of the first metatarsal phalangeal joint. Evidence for prior bunionectomy changes. Electronically Signed: Camilo Carrizales MD at 21:24 EDT Reading Location ID and State: [facility] / [place] , Service support ,
== END | disposition home or self-care (01) ==
LOC: MTRAD 15:41
PROVIDERS: PCP Family Medicine; Referring Provider Nurse Practitioner Family; Visit Provider Nurse Practitioner Family
DX: M79.672 Pain in left foot (principal)
CPT/HCPCS: 73630

== ENCOUNTER → 2022-05-06 | Outpatient (CLI) | payer MEDICARE, OTHER, SELFPAY ==
--- NOTE | 2022-05-06 09:48 | BI_ITS ---
MAMMOGRAPHY - BILATERAL SCREENING REASON FOR EXAM: Female, 76 years old. Routine annual screening examination. PERTINENT HISTORY: Non-contributory. TECHNIQUE: Digital bilateral breast mayur (3D mammographic acquisition) in the CC and MLO projections. 2-D mediolateral oblique (MLO) and craniocaudad (CC) views of both breasts were obtained. CAD: Full Field Digital Mammography with Computer Added Detection was performed. COMPARISON: Comparison is made with prior study of May 06, 2021 and November 07, 2019. FINDINGS: Breast Composition: The breasts are heterogeneously dense, which may obscure small masses. There are no dominant masses or suspicious calcifications. Stable small benign appearing bilateral axillary lymph nodes. No other significant abnormalities are identified. There has been no significant change since the prior study. BI/SCRN MAMM (CAD)W/MAYUR BILAT IMPRESSION: Stable bilateral screening mammogram. Yearly follow-up mammogram recommended. (A) ASSESSMENT CATEGORY: BIRADS Category 2: Benign. A letter regarding these results will be sent to the patient by the facility within 30 days. Approximately 10% of breast cancers are not detected by mammography. A normal mammogram should not delay biopsy of a clinically suspicious abnormality. [id number] Electronically Signed: Neville Schaffer MD at 11:07 EST ,
--- NOTE | 2022-05-06 10:00 | BD_ITS ---
STUDY: DUAL ENERGY X-RAY ABSORPTIOMETRY / DXA REASON FOR EXAM: Female, 76 years old. [id number] TECHNIQUE: Bone Mineral Density (BMD) measurements of lumbar spine and bilateral hips were obtained. COMPARISON: Comparison is made with prior study dated November 07, 2019. FINDINGS: Lumbar Spine (L1-L4): g/cm2 (1.058) / T-score (0.1) / Z-score (2.5) Findings are suggestive of normal bone density with a low fracture risk. Left Femur Total: g/cm2 (0.898) / T-score (-0.4) / Z-score (1.4) Left Femoral Neck: g/cm2 (0.771) / T-score (-0.7) / Z-score (1.4) Right Femur Total: g/cm2 (0.973) / T-score (0.3) / Z-score (2.0) Right Femoral Neck: g/cm2 (1.048) / T-score (1.8) / Z-score (3.9) The T-Scores on the most recent prior examination were: Lumbar Spine (L1-L4): There has been worsening of bone density since the previous examination. Left Femur Total: which represents a worsening of 2.3%. Right Femur Total: which represents an improvement of 3.3%. BD/Dexa Bone Density Study IMPRESSION: The patient is considered normal as outlined below according to World Rafi Organization (WHO) criteria with a low fracture risk. There has been worsening of bone density since the previous examination. Reference Information: The T-score is the number of standard deviations above or below the standard which is normal for young adults at their peak bone mineral density. The World Health Organization (WHO) interprets the T-scores as follows: Above -1 Normal bone density Between -1 and -2.5 Osteopenia Equal to / or below -2.5 Osteoporosis As a practical clinical guideline, osteopenia may be graded as follows: Mild -1 through -1.5 Moderate -1.6 through -2.0 Severe -2.1 through -2.4 The Z-score is the number of standard deviations above or below age-matched controls. A Z-score of less than -1.5 would be considered abnormal. References: 1. NIH Osteoporosis and Related Bone Diseases www osteo.org 2. International Society for Clinical Densitometry www iscd.org 3. National Osteoporosis Foundation www nof.org Electronically Signed: Neville Schaffer MD at 10:41 EST ,
== END | disposition home or self-care (01) ==
PROVIDERS: PCP Family Medicine; Referring Provider Family Medicine; Visit Provider Family Medicine
DX: Z12.31 Encounter for screening mammogram for malignant neoplasm of breast (principal); M81.0 Age-related osteoporosis without current pathological fracture; Z78.0 Asymptomatic menopausal state
CPT/HCPCS: 77063; 77067; 77080

== ENCOUNTER → 2022-07-20 | Outpatient (CLI) | payer MEDICARE, OTHER, SELFPAY ==
[2022-07-20 15:21] LABS: Absolute Lymphocyte Count 1.38 X10^3/uL (0.83-4.51); Absolute Neutrophil Count 4.3 X10^3/uL (2.0-7.7); Basophil# 0.05 X10^3/uL; Basophil% 0.8 % (0-1); Eosinophil# 0.15 X10^3/uL; Eosinophils% 2.4 % (0-5); Hemoglobin 13.1 g/dL (12.0-15.0); Lymphocyte # 1.38 X10^3/ul (0.83-4.51); Lymphocyte % 22.1 % (19-41); Mean Corpuscular Hgb 28.6 pg (27.0-32.0); Mean Corpuscular Volume 89.5 fL (81-99); Mean Platelet Vol. 9.2 fl (6.2-12.0); Monocyte# 0.33 X10^3/uL; Monocyte% 5.3 % (0-10); NRBC Flagged by Analyzer 0 % (0-5); Neutrophil # 4.31 X10^3/uL (2.7-7.7); Neutrophil % 69.1 % (47-70); Platelet Count 275 K/mm3 (150-450); RBC Distribution Width CV 14.4 % (11.6-14.6); RBC Distribution Width SD 46.7 fl (35.1-43.9); Red Blood Count 4.58 M/mm3 (4.2-5.4); White Blood Count 6.2 K/mm3 (4.4-11.0)
[2022-07-20 15:40] LABS: AST(SGOT) 22 U/L (15-37); Alanine Aminotransfer ALT/SGPT 36 U/L (13-56); Albumin, Serum 3.6 g/dL (3.2-5.0); Alkaline Phosphatase 111 U/L (45-117); Anion Gap 6 (5-15); BUN 18 mg/dL (7-18); BUN/Creat Ratio 20.1 RATIO (10-20); Calcium,Total 9.2 mg/dL (8.5-10.1); Chloride 110 mmol/L (98-107); EST Glomerular Filtration Rate 65 mL/min (>60); Est Glom Filt Rate - Afr Amer 79 mL/min (>60); Globulin 3.7 g/dL (2.2-4.2); Glucose 102 mg/dL (74-106); Potassium 4.4 mmol/L (3.5-5.1); Protein, Total 7.3 g/dL (6.4-8.2); Sodium Level 141 mmol/L (136-145)
[2022-07-20 15:42] LABS: Vitamin D,25 Hydroxy 43.4 ng/mL
== END | disposition home or self-care (01) ==
LOC: MFPLAB 11:26
PROVIDERS: PCP Family Medicine; Visit Provider Family Medicine
DX: Z00.00 Encounter for general adult medical examination without abnormal findings (principal); N18.30 Chronic kidney disease, stage 3 unspecified; E55.9 Vitamin D deficiency, unspecified
CPT/HCPCS: 36415; 80053; 82306; 85025

== ENCOUNTER → 2023-02-18 | Outpatient (CLI) | payer MEDICARE, OTHER, SELFPAY ==
--- NOTE | 2023-02-18 13:21 | CT_ITS ---
STUDY: LOW DOSE CT LUNG CANCER SCREENING REASON FOR EXAM: Female, 77 years old. TOBACCO USE RADIATION DOSAGE (If Supplied By Facility): CTDIvol = ( 1.59 ) mGy, DLP = ( 49.23 ) mGycm TECHNIQUE: No contrast was administered. Low dose technique was utilized (average mAS-38 and kVp 120). 1.25 mm axial source images with a slice interval of 1.25-mm were reconstructed in lung windows. 2.5 mm axial source images with a slice interval of 2.5-mm were reconstructed in lung windows. 5.0 mm axial source images with a slice interval of 5.0-mm were reconstructed in soft tissue windows. COMPARISON: Comparison is made with prior study dated May 06, 2021. NODULES: Stable 3 mm well-defined nodule in the left lower lobe superiorly as seen on axial image #95. Punctate calcification is seen within it. Stable 4 mm x 4 mm granuloma in the left upper lobe. Calcified granuloma in the right lower lobe. Emphysema: Hyperinflation. Mild degree of emphysematous changes. Endobronchial lesion: None Aorta: Atherosclerotic calcific plaques of the aortic arch. CORONARY ARTERIES: Coronary artery calcification Heart: No significant coronary artery calcification is seen. Pulmonary artery: Unremarkable Mediastinal nodes: Calcified bilateral hilar lymph nodes as well as subcarinal lymph nodes. Other chest and abdominal findings: CT/Low Dose CT Lung Screening IMPRESSION: Lung-RADS category 2 - Continue annual screening with LDCT in 12 months. IMPORTANT NOTES FOR USE: ACR Lung-RADS Version 1.1 Assessment Categories Release Date: 2018 Category: Coded 0-4 bases on nodule(s) with highest degree of suspicion. Negative screen is defined as categories 1 and 2; a positive screen is defined as categories 3 and 4. Category 3 and 4A nodules that are unchanged on interval CT should be coded as category 2, and individuals returned to screening in 12 months. Category 4X: Category 3 or 4 nodules with additional imaging findings that increase the suspicion of lung cancer, such as spiculation, GGN that doubles in size in 1 year, enlarged lymph notes, etc. Category Modifiers: S (significant finding unrelated to lung cancer) Electronically Signed: Neville Schaffer MD at 14:22 EST ,
== END | disposition home or self-care (01) ==
LOC: CT 13:20
PROVIDERS: PCP Family Medicine; Referring Provider Family Medicine; Visit Provider Family Medicine
DX: F17.210 Nicotine dependence, cigarettes, uncomplicated (principal)
CPT/HCPCS: 71271

== ENCOUNTER → 2023-07-26 | Outpatient (CLI) | payer MEDICARE, OTHER, SELFPAY ==
[2023-07-26 15:40] LABS: Vitamin D,25 Hydroxy 62.8 ng/mL
[2023-07-26 15:52] LABS: ALB/GLOB Ratio 1.1 RATIO (0.9-2.4); AST(SGOT) 21 U/L (15-37); Alanine Aminotransfer ALT/SGPT 32 U/L (13-56); Alkaline Phosphatase 112 U/L (45-117); Anion Gap 7 (5-15); BUN 23 mg/dL (7-18); BUN/Creat Ratio 24.6 RATIO (10-20); Calcium,Total 9.3 mg/dL (8.5-10.1); Chloride 106 mmol/L (98-107); Cholesterol 214 mg/dL (200); Creatinine, Serum 0.94 mg/dL (0.55-1.02); EST Glomerular Filtration Rate 62 mL/min (>60); Est Glom Filt Rate - Afr Amer 75 mL/min (>60); Globulin 3.6 g/dL (2.2-4.2); Glucose 106 mg/dL (74-106); High Density Lipoprotein 85 mg/dL; Potassium 3.9 mmol/L (3.5-5.1); Protein, Total 7.6 g/dL (6.4-8.2); Sodium Level 137 mmol/L (136-145); Triglycerides 115 mg/dL; Very Low Density Lipoprotein 23 mg/dL (5-40)
[2023-07-26 16:09] LABS: Erythrocyte Sedimentation Rate 12 mm/hr (0-30)
[2023-07-26 16:11] LABS: Hematocrit 42.2 % (37-47); Hemoglobin 13.5 g/dL (12.0-15.0); Mean Corpuscular Hgb 28.8 pg (27.0-32.0); Mean Platelet Vol. 9.7 fl (6.2-12.0); Platelet Count 292 K/mm3 (150-450); RBC Distribution Width CV 14.1 % (11.6-14.6); RBC Distribution Width SD 46.5 fl (35.1-43.9); Red Blood Count 4.69 M/mm3 (4.2-5.4); White Blood Count 7.1 K/mm3 (4.4-11.0)
== END | disposition home or self-care (01) ==
LOC: MFPLAB 11:53
PROVIDERS: PCP Family Medicine; Visit Provider Family Medicine
DX: R73.01 Impaired fasting glucose (principal); N18.30 Chronic kidney disease, stage 3 unspecified; I12.9 Hypertensive chronic kidney disease with stage 1 through stage 4 chronic kidney disease, or unspecified chronic kidney disease
CPT/HCPCS: 36415; 80053; 80061; 82306; 85027; 85652

== ENCOUNTER → 2023-11-14 | Outpatient (CLI) | payer MEDICARE, OTHER, SELFPAY ==
--- NOTE | 2023-11-14 11:12 | RAD_ITS ---
STUDY: X-RAY - LEFT SHOULDER REASON FOR EXAM: Female, 78 years old. Pain. TECHNIQUE: 4 views of the left shoulder. COMPARISON: None. FINDINGS: Normal glenohumeral articulation. There is hypertrophic acromioclavicular arthrosis. Normal acromion. Normal humeral head and visualized proximal humerus. The soft tissue structures are unremarkable. There is no demonstrated fracture. Normal visualized pulmonary apex. RAD/Shoulder min 2 Views IMPRESSION: Hypertrophic acromioclavicular arthrosis. No demonstrated fracture. Electronically Signed: Faisal Valenzuela MD at 13:35 EDT ,
== END | disposition home or self-care (01) ==
PROVIDERS: PCP Family Medicine; Referring Provider Family Medicine; Visit Provider Family Medicine
DX: M25.512 Pain in left shoulder (principal)
CPT/HCPCS: 73030

== ENCOUNTER → 2024-05-08 | Outpatient (CLI) | payer MEDICARE, OTHER, SELFPAY ==
--- NOTE | 2024-05-08 12:53 | BI_ITS ---
PROCEDURE: SCRN MAMM (CAD)W/MAYUR BILAT REASON FOR EXAM: F, Age 78 y/o , SCREENING. No family history of breast cancer. TECHNIQUE: Bilateral screening digital breast tomosynthesis with 2D and 3D images. Computer aided detection. COMPARISON: 05/06/2022, 05/06/2021 FINDINGS: There are scattered areas of fibroglandular density. No suspicious masses, areas of developing architectural distortion, or suspicious calcifications. BI/SCRN MAMM (CAD)W/MAYUR BILAT IMPRESSION: There is no mammographic evidence of malignancy. BI-RADS 1: NEGATIVE. RECOMMEND ANNUAL MAMMOGRAPHIC SCREENING. Follow-up code: Routine Follow-up The patient will be notified of the results by letter. Reading Location: [id number]
--- NOTE | 2024-05-08 12:59 | BD_ITS ---
PROCEDURE: DEXA BONE DENSITY STUDY REASON FOR EXAM: F, age 78 y/o . Postmenopausal. TECHNIQUE: DEXA scan of the lumbar spine and both hips. COMPARISON: Comparison is made with prior study dated May 06, 2022. FINDINGS: Lumbar Spine (L1-L4): g/cm2 (0.997)/T-score (0.2)/Z-score (2.5) findings are suggestive of normal with a low fracture risk. Left Femur Total: g/cm2 (0.859)/T-score (-0.7)/Z-score (1.2) Left Femoral Neck: g/cm2 (0.702)/T-score (-1.5)/Z-score (0.8) Right Femur Total: g/cm2 (0.909)/T-score (-0.3)/Z-score (1.6) Right Femoral Neck: g/cm2 (0.754)/T-score (-0.9)/Z-score (1.3) The T-Scores on the most recent prior examination were: Lumbar Spine (L1-L4): There has been improvement of bone density since the previous examination. Left Femur Total: Worsening of 4.4%. Right Femur Total: Worsening of 6.6%. BD/Dexa Bone Density Study IMPRESSION: The patient is considered osteopenia as outlined below according to World Rafi Organization (WHO) criteria with a low fracture risk. There has been worsening of bone density since the previous examination. Reading Location: [place] [id number]
--- NOTE | 2024-05-08 13:41 | CT_ITS ---
PROCEDURE: LOW DOSE CT LUNG SCREENING REASON FOR EXAM: > 30 PACK YEAR Current smoker. TECHNIQUE: Low Dose CT Lung Screening without contrast COMPARISON: Comparison is made with prior study dated February 18, 2023. FINDINGS: PULMONARY NODULES: (Only nodules >6mm are reported) Nodules described below are on series 1 unless otherwise specified. Pulmonary Nodules: Stable scattered bilateral small calcified granulomas. Hardware:None Lymph Nodes:Calcified mediastinal as well as bilateral hilar lymph nodes more prominent on the right side. Heart and Vasculature:Normal heart size. No pericardial effusion.Thoracic aorta and pulmonary arteries have normal contours; noncontrast technique limits evaluation. Coronary Artery Calcifications: Absent Lungs and Airways: The lungs are normally expanded and clear. Pleura:No pleural effusion. No pneumothorax. Upper Abdomen:Visualized portions of the upper abdominal viscera are unremarkable. Bones:Degenerative changes of the thoracic spine. CT/Low Dose CT Lung Screening IMPRESSION: 1. BASED ON THE ACR LUNG RADS FOR THE MOST SUSPICIOUS NODULE (IF ANY) DESCRIBE D IN THIS REPORT, THE OVERALL LUNG RADS SCORE IS 2.2 - BENIGN (BASED ON IMAGING FEATURES OR INDOLENT BEHAVIOR). RECOMMEND 12-MON TH SCREENING LDCT.. 2. SMOKING CESSATION COUNSELING IS RECOMMENDED IF THE PATIENT IS STILL SMOKING . 3. OTHER SIGNIFICANT FINDINGSNone. One or more dose reduction techniques were used (e.g., Automated exposure contr ol, adjustment of the mA and/or kV according to patient size, use of iterative reconstruction technique). The following information is provided for reference:Lung-RADS 2021 Assessment C ategories. Additional information involving Lung-RADS is available at www.acr.org. 0-INCOMPLETE 1-NEGATIVE:No nodules or definitely benign nodules. Complete, central, popcorn , or centric ring calcifications OR fat containing 2-BENIGN APPEARANCE (based on imaging features or indolent behavior). Juxtaple ural nodule: < 10mm AND solid; smooth margins; oval, entiform, or triangular shape Solid nodule: <6mm at baseline or new< 4mm Part solid Nodule: < 6mm total mean diameter at baseline Nonsolid nodule:(GGN) < 30mm OR >=30mm stable or slowly growing Airway nodule, subsegmental at baseline, new, or stable Category 3 nodule stabl e or decreased in size at 6-month follow-up CT or Category 3 or 4A nodules that resolve on follow-up OR category 4B findings prov en to be benign following diagnotic work up. 3 - Probably Benign (Based on imaging features or behavior) Solid Nodule: >= 6 to <8mm at baseline OR new 4 to <6mm Part-solid nodule: >= 6mm toal mean diam. with solid component <6mm at baseline OR new < 6mm total mean diam. Non-solid nodule: GGN >= 30mm at baseline or new Atypical pulmonary cyst: Growing cystic component (mean diam.) of thick-walled cyst Category 4A nodule stable or decreased in size at 3-month follow-up CT (excl.ai rway). 4A - Suspicious Solid nodule: >=8 to < 15mm at baseline OR growing < 8mm OR new 6 to < 8mm Part solid nodule: >= 6mm total mean diam. w/ solid component >=6mm to < 8mm at baseline OR new or growing < 4mm solid component Airway nodule, segmental or more proximal at baseline or new Atypical pulmonary cyst: Thick-walled OR multilocular at baseline OR becomes mu ltilocular 4B - Very Suspicious Airway nodule, segmental or more proximal, and stable or growing Solid nodule: >= 15mm at baseline OR new or growing >= 8mm Part solid nodule: Solid component >= 8mm OR new or growing >= 4mm solid compon ent Atypical pulmonary cyst: Thick-walled with growing wall thickness/nodularity OR Growing multilocular (mean diam.) OR Multilocular with increased loculation or new/increased opacity Slow-growing solid or part solid nodule w/ growth over multiple screening exams 4X - Very Suspicious Category 3 or 4 nodules with additional features that increase the suspicion fo r lung cancer. S - Clinically Significant or potentially significant findings (non-lung cancer ) Reading Location: [place] [id number]
== END | disposition home or self-care (01) ==
PROVIDERS: PCP Family Medicine; Referring Provider Family Medicine; Visit Provider Family Medicine
DX: Z12.31 Encounter for screening mammogram for malignant neoplasm of breast (principal); M81.0 Age-related osteoporosis without current pathological fracture; F17.210 Nicotine dependence, cigarettes, uncomplicated; M85.80 Other specified disorders of bone density and structure, unspecified site
CPT/HCPCS: 71271; 77063; 77067; 77080

== ENCOUNTER → 2024-06-25 | Outpatient (CLI) | payer MEDICARE, OTHER, SELFPAY ==
[2024-06-25 11:25] LABS: Absolute Lymphocyte Count 1.61 X10^3/uL (0.83-4.51); Absolute Neutrophil Count 4.8 X10^3/uL (2.0-7.7); Basophil# 0.07 X10^3/uL; Eosinophil# 0.23 X10^3/uL; Eosinophils% 3.2 % (0-5); Hematocrit 40.1 % (37-47); Hemoglobin 13.1 g/dL (12.0-15.0); Lymphocyte # 1.61 X10^3/ul (0.83-4.51); Lymphocyte % 22.2 % (19-41); Mean Corp Hgb Conc 32.7 g/dL (32-36); Mean Corpuscular Hgb 29.4 pg (27.0-32.0); Mean Corpuscular Volume 89.9 fL (81-99); Mean Platelet Vol. 9.8 fl (6.2-12.0); Monocyte# 0.48 X10^3/uL; Monocyte% 6.6 % (0-10); NRBC Flagged by Analyzer 0 % (0-5); Neutrophil # 4.84 X10^3/uL (2.7-7.7); Neutrophil % 66.6 % (47-70); Platelet Count 292 K/mm3 (150-450); RBC Distribution Width CV 14.2 % (11.6-14.6); RBC Distribution Width SD 47.1 fl (35.1-43.9); Red Blood Count 4.46 M/mm3 (4.2-5.4); White Blood Count 7.3 K/mm3 (4.4-11.0)
[2024-06-25 11:29] LABS: Erythrocyte Sedimentation Rate 19 mm/hr (0-30)
[2024-06-25 12:04] LABS: ALB/GLOB Ratio 1.5 RATIO (0.9-2.4); AST(SGOT) 20 U/L (<=31); Alanine Aminotransfer ALT/SGPT 17 U/L (<=34); Albumin, Serum 4.3 g/dL (3.4-4.8); Alkaline Phosphatase 103 U/L (35-104); Anion Gap 12 (5-15); BUN 23 mg/dL (4-19); BUN/Creat Ratio 27.5 RATIO (10-20); Calcium,Total 9.4 mg/dL (7.6-11.0); Carbon Dioxide 22.7 mmol/L (21.0-32.0); Chloride 105 mmol/L (98-108); Cholesterol 199 mg/dL (<=200); Creatinine, Serum 0.85 mg/dL (0.70-1.20); EST Glomerular Filtration Rate 71 (>60); Globulin 2.9 g/dL (2.2-4.2); Glucose 110 mg/dL (70-99); High Density Lipoprotein 84 mg/dL; Low Density Lipoprotein Calc. 97 mg/dL; Potassium 4.3 mmol/L (3.3-5.1); Protein, Total 7.2 g/dL (5.9-8.4); Sodium Level 140 mmol/L (133-145); Total Bilirubin 0.18 mg/dL (0.00-1.30); Triglycerides 92 mg/dL; Very Low Density Lipoprotein 18 mg/dL (5-40); Vitamin D,25 Hydroxy 42.7 ng/mL (30-100); cholesterol:hdl ratio screen 2.37
== END | disposition home or self-care (01) ==
LOC: LAB 10:23
PROVIDERS: PCP Family Medicine; Referring Provider Family Medicine; Visit Provider Family Medicine
DX: I10 Essential (primary) hypertension (principal)
CPT/HCPCS: 36415; 80053; 80061; 82306; 85025; 85652